=== PATIENT | male | born 1930 | race Caucasian/White ===

== ENCOUNTER 2016-07-13 21:04 | Emergency (ER) | payer MEDICARE ==
[~2016-07-13] VITALS: Ht 182.8 cm; Wt 95.3 kg
[2016-07-13 21:04] VITALS: BP 130/72
[~2016-07-13 21:04] MED LIST: ACETAMINOPHEN-H1 TA2 PO; AMPICILLIN500 MG PO; ASPIR-TRIN325 MG PO; BACTROBAN OINT0.9 GM T; CARAFATE1 GM PO; CIPRO250 MG PO; Carafate1 GM PO; DOXYCYCLINE HY100 M5 PO; ECOTRIN325 M1 PO; FAMOTIDINE20 M1 PO; FENOFIBRATE160 MG PO; FISH OIL 1,0001 EAC1 PO; FISH OIL500 M1 PO; FLOMAX0.4 MG PO; Ferrex 150150 MG PO; GLUCOPHAGE500 MG PO; HYDROCODONE/ACE1 T14 PO; IMDUR SA60 M1 PO; IRON325 M1 PO; Imdur SA60 MG PO; LEVAQUIN750 M1 PO; LISINOPRIL10 M1 PO; METFORMIN ER500 MG PO; METFORMIN500 MG PO; METOPROLOL25 MG PO; MIRALAX POWDER255 G1 PO; NORVASC10 MG PO; NORVASC5 MG PO; PEPCID20 MG PO; PLAVIX75 M1 PO; PRAVACHOL40 MG PO; PRAVASTATIN SOD40 MG PO; PROSCAR5 M1 PO; PROTONIX TR40 M1 PO; PROTONIX40 MG PO; RANEXA500 M1 PO; REMEDY WITH OLI1 PAS T; SENOKOT1 TAB PO; TOPROL XL25 MG PO; TRIGLIDE160 MG PO; TYLENOL325 M1 PO; VITAMIN D32000 UNIT PO; XANAX0.25 MG PO; XARELTO15 M1 PO; ZETIA10 MG PO
[2016-07-13 22:12] LABS: BILIRUBIN NEGATIVE (NEGATIVE); BLOOD 2+ (NEGATIVE); CLARITY SL CLOUDY (CLEAR); COLOR YELLOW (YELLOW); GLUCOSE NEGATIVE (NEGATIVE); KETONE NEGATIVE (NEGATIVE); LEUKO ESTERASE 2+ (NEGATIVE); NITRITE NEGATIVE (NEGATIVE); PH 5.5 (5.0-9.0); PROTEIN 2+ (NEGATIVE); SPECIFIC GRAVITY 1.025 (1.005-1.030)
[2016-07-13 22:36] LABS: RBC 31-40 rbc/hpf (0-2); WBC 41-50 wbc/hpf (0-5)
[2016-07-13 22:37] LABS: BACTERIA TRACE; URINE REFLEX COMMENT YES (NO)
[2016-07-13] MEDS ORDERED: CEFUROXIME AXE250 MG PO (22:43)
== END 2016-07-13 23:37 | disposition home or self-care (01) ==
LOC: ED 21:04
PROVIDERS: Physician Assistant
DX: T83.010A Breakdown (mechanical) of cystostomy catheter, initial encounter (principal); R33.9 Retention of urine, unspecified; N39.0 Urinary tract infection, site not specified; I25.10 Atherosclerotic heart disease of native coronary artery without angina pectoris; I12.9 Hypertensive chronic kidney disease with stage 1 through stage 4 chronic kidney disease, or unspecified chronic kidney disease; N18.3 Chronic kidney disease, stage 3 (moderate); I99.8 Other disorder of circulatory system; E11.9 Type 2 diabetes mellitus without complications; Z88.8 Allergy status to other drugs, medicaments and biological substances; Z79.899 Other long term (current) drug therapy

== ENCOUNTER 2016-08-29 11:45 | Inpatient (IN) | payer MEDICARE ==
[~2016-08-29] VITALS: Ht 182.8 cm; Wt 90.9 kg
[2016-08-29] VITALS (7 sets, daily range): BP systolic 96–137; BP diastolic 48–73
--- NOTE | ~2016-08-29 | CON ---
[place], [place] REPORT OF CONSULTATION NAME: PRESTON FREEMAN UNIT #: [id number] ROOM: 508 DOCTOR: JOSEPH ALLEN MD BIRTHDATE: [birth year] DOS: 09/02/2016 HISTORY OF PRESENT ILLNESS: The patient has presented with GI bleed, underwent endoscopic evaluation and was found to have gastritis, hiatal hernia. Colonoscopy with piecemeal polypectomy was performed. There was no active bleeding of concern; was noticed diverticulosis, small hemorrhoids, all have been recognized. His blood cultures were negative. His latest CBC, white blood cells of 6, H and H of 9 and 27. REVIEW OF SYSTEMS: No hematemesis, no hematochezia, no shortness of breath, no chest pain at the present time. PHYSICAL EXAMINATION: GENERAL: Relatively restraint; however, alert and oriented. HEENT: Head is normocephalic, nontraumatic. Mouth and buccal mucosa benign. NECK: Supple, no thyromegaly, no cervical lymphadenopathy. CHEST: Symmetric anatomy, equal expansion. HEART: Normal sinus rhythm, no gallop, no murmur. ABDOMEN: Soft. No hepato-organomegaly. Bowel sounds are present. EXTREMITIES: 2+ edema. NEUROLOGIC: Alert and oriented to time, place, and person. IMPRESSION: Diverticulosis, colonic polyp, gastritis, and hiatal hernia. PLAN AND DISCUSSION: PPI management, observation of H and H, clinical reassessment. Labs reviewed, records reviewed, data reviewed. JOSEPH ALLEN MD CM:CONSTR:REPORT OF CONSULTATION 1244 09/03/16 0516 interface
--- NOTE | ~2016-08-29 | CON ---
[place], [place] REPORT OF CONSULTATION NAME: PRESTON FREEMAN UNIT #: [id number] ROOM: 508 DOCTOR: JOSEPH ALLEN MD BIRTHDATE: [birth year] DOS: HISTORY OF PRESENT ILLNESS: An 85-year-old patient who was presented with chief complaint of lower GI bleed according to the family. The patient has to be admitted for definitive evaluation. A panel of blood work was done and was found to have anemia, H and H of 9 and 27, white blood cell was 4.9. Urine culture greater than 100,000, heavy gram-negative bacilli was being addressed. Resistance to many antibiotics has been noticed as per protocol. Lactic acid was 1.0. CBC differential, white blood cell was 4.9, H and H of 9 and 27. Continue with chest x-ray clear. Comprehensive metabolic panel: BUN and creatinine 18 and 1.6. Sodium 135. Electrolytes balanced. Liver function tests normal. Total iron binding was normal. PAST MEDICAL HISTORY: Coronary artery disease, renal insufficiency, shoulder pain, dementia, hypertension, neurogenic bladder, all has been noticed. PAST SURGICAL HISTORY: Cardiac pacemaker, bilateral knee prosthesis, coronary artery stents, and cholecystectomy. SOCIAL HISTORY: Nonsmoker, nonalcohol consumer. FAMILY HISTORY: Noncontributory. ALLERGIES: LORAZEPAM. MEDICATIONS: List has been reviewed. REVIEW OF SYSTEMS: HEENT: Denies double vision, blurred vision. RESPIRATORY: Denies shortness of breath. CARDIOVASCULAR: Denies chest pain. DIGESTIVE SYSTEM: Blood in the stool. PHYSICAL EXAMINATION: VITAL SIGNS: Stable. HEENT: Head: Normocephalic, nontraumatic. Mouth and buccal mucosa benign. NECK: Supple. No thyromegaly. CHEST: Symmetric anatomy, equal expansion. No wheeze, no rhonchi. HEART: Normal sinus rhythm, no gallop, no murmur. ABDOMEN: Soft. No hepato-organomegaly. Bowel sounds present. No pulsatile mass. EXTREMITIES: No cyanosis, no pedal edema. NEUROLOGIC: Alert, oriented to time, place, person. IMPRESSION: Lower gastrointestinal bleed, anemia, renal insufficiency, hypertension, coronary artery disease, diabetes mellitus. PLAN AND DISCUSSION: We are going to organize a colonoscopy evaluation . Workup in progress. [place], [place] REPORT OF CONSULTATION NAME: PRESTON FREEMAN UNIT #: [id number] ROOM: 508 DOCTOR: TIFFANY HERNANDEZ,JOSEPH BIRTHDATE: [birth year] Thank you very much indeed. JOSEPH ALLEN MD CM:CONSTR:REPORT OF CONSULTATION 1112 08/30/16 2304 interface
--- NOTE | ~2016-08-29 | O ---
[place], [place] OPERATIVE NOTE NAME: PRESTON FREEMAN UNIT #: [id number] ROOM: 508 DOCTOR: JOSEPH ALLEN MD BIRTHDATE: [birth year] DOS: INDICATIONS: An 85-year-old patient who has presented with chief complaint of lower GI bleed and has been admitted for definitive concerns about above consultations have been dictated. PROCEDURE: Today's procedure part of investigation is colonoscopy. PREMEDICATION: Versed and Diprivan. SCOPE: Olympus forward-viewing colonoscope 10L video. REPORT: After putting the patient in the left lateral position and after application of lubricant to the scope, the scope was introduced. Thereafter, under direct visualization, I advanced through the length of colon without difficulty. Severe diverticulosis coli was appreciated. Base of the cecum explored, appendiceal orifice identified, and ileocecal valve was defined and photographed. Scope was gradually withdrawn from ascending, transverse, descending colon. The patient was extubated after a hemorrhoid small in size in the rectum was identified. IMPRESSION: Diverticulosis, small hemorrhoid, perhaps this patient bled from the hemorrhoid. PLAN AND DISCUSSION: We are going to resume regular diet and supportive management. The patient is ready for discharge. Thank you very much indeed. JOSEPH ALLEN MD CM:OPRECORD:OPERATIVE NOTE 1151 1525 JOSEPH ALLEN MD 08/30/16 1526 interface
[~2016-08-29 11:45] MED LIST changes: +CEFUROXIME AXE250 MG PO
[2016-08-29] MEDS ORDERED: ASPIRIN81 M1 PO (12:37)
[2016-08-29] MEDS ORDERED: FENOFIBRATE150 MG PO (12:39)
[2016-08-29] MEDS ORDERED: PEPCID20 MG PO (12:40)
[2016-08-29] MEDS ORDERED: CARAFATE1 G1 PO (12:41)
[2016-08-29 13:25] LABS: BASO % 0.4 % (0.0-1.0); EOS # 0.1 10*3/uL (0.0-0.4); EOS % 1.2 % (1.0-4.0); HEMATOCRIT 27.9 % (42.0-52.0); HEMOGLOBIN 9.4 g/dl (14.0-18.0); LYMPH # 1.1 10*3/uL (1.3-4.4); LYMPH % 22.8 % (27.0-41.0); MEAN CELL VOLUME 94.3 fl (80.0-94.0); MEAN CORPUSCULAR HGB 31.8 pg (27.0-31.0); MEAN CORPUSCULAR HGB CONC 33.7 g/dl (33.0-37.0); MEAN PLATELET VOLUME 9.8 fl (9.6-12.3); MONO # 0.4 10*3/uL (0.1-1.0); MONO % 8.9 % (3.0-9.0); NEUT # 3.2 10*3/uL (2.3-7.9); NEUT % 66.1 % (47.0-73.0); PLATELET COUNT AUTOMATED 209 10*3/uL (130-400); RED BLOOD COUNT 2.96 10*6/uL (4.50-5.90); RED CELL DISTRI WIDTH 13.5 % (0-14.5); WHITE BLOOD COUNT 4.8 10*3/uL (4.8-10.8)
[2016-08-29 13:40] LABS: ALBUMIN 3.1 gm/dl (3.1-4.5); BILIRUBIN, TOTAL 0.5 mg/dl (0.2-1.0); POTASSIUM 4.1 mmol/L (3.5-5.1); TOTAL PROTEIN 6.1 gm/dL (6.4-8.2)
[2016-08-29 14:28] LABS: IRON 84 ug/dL (65-175); IRON SATURATION 32 %; UIBC 178 ug/dL (110-410)
[2016-08-29] MEDS ORDERED: HYDROCODONE BIT1 T11 PO (15:33)
[2016-08-29] MEDS ORDERED: PROSCAR5 M1 PO (15:33)
[2016-08-29] MEDS ORDERED: BACTRIM DS 8001 TAB PO (15:34)
[2016-08-29 18:30] LABS: CKMB 1.4 ng/ml (0.5-3.6); TROPONIN I 0.026 ng/ml (<0.045)
[2016-08-30] VITALS (9 sets, daily range): BP systolic 113–152; BP diastolic 63–92
[2016-08-30 00:43] LABS: CKMB 1.3 ng/ml (0.5-3.6); TROPONIN I 0.038 ng/ml (<0.045)
[2016-08-30 06:46] LABS: CKMB 1.4 ng/ml (0.5-3.6)
[2016-08-30 06:47] LABS: BASO % 0.8 % (0.0-1.0); EOS # 0.1 10*3/uL (0.0-0.4); EOS % 2.7 % (1.0-4.0); HEMATOCRIT 28.7 % (42.0-52.0); HEMOGLOBIN 9.4 g/dl (14.0-18.0); LYMPH # 1.5 10*3/uL (1.3-4.4); LYMPH % 28.9 % (27.0-41.0); MEAN CORPUSCULAR HGB 31.1 pg (27.0-31.0); MEAN CORPUSCULAR HGB CONC 32.8 g/dl (33.0-37.0); MEAN PLATELET VOLUME 9.6 fl (9.6-12.3); MONO # 0.5 10*3/uL (0.1-1.0); MONO % 9.7 % (3.0-9.0); NEUT % 57.1 % (47.0-73.0); PLATELET COUNT AUTOMATED 204 10*3/uL (130-400); RED BLOOD COUNT 3.02 10*6/uL (4.50-5.90); RED CELL DISTRI WIDTH 13.7 % (0-14.5); WHITE BLOOD COUNT 5.2 10*3/uL (4.8-10.8)
[2016-08-30 06:48] LABS: TROPONIN I 0.056 ng/ml (<0.045)
[2016-08-30 07:03] LABS: INTERNATIONAL NORM RATIO 1.1 (2.0-3.5); PROTHROMBIN TIME 12.2 SECONDS (9.0-12.4)
[2016-08-30 07:15] LABS: FREE T4 1.23 ng/dl (0.76-1.46); MAGNESIUM 1.8 mg/dL (1.5-2.1); PHOSPHOROUS 2.1 mg/dL (2.5-4.9); POTASSIUM 4.1 mmol/L (3.5-5.1)
[2016-08-30 07:21] LABS: THYROID STIM HORMONE (HS) 0.76 uIU/ml (0.358-4.75)
[2016-08-30 07:22] LABS: HEMOGLOBIN A1c 5.6 % (4.8-5.6)
[2016-08-30 08:15] LABS: VITAMIN D, 25-HYDROXY 26.4 ng/mL (30-100)
[2016-08-30 08:16] LABS: FOLIC ACID 5.29 ng/mL (>5.38)
[2016-08-31] VITALS: BP 115/84
[2016-08-31 06:19] LABS: HEMOGLOBIN 9.2 g/dl (14.0-18.0); MEAN CELL VOLUME 92.2 fl (80.0-94.0); MEAN CORPUSCULAR HGB 31.4 pg (27.0-31.0); MEAN CORPUSCULAR HGB CONC 34.1 g/dl (33.0-37.0); NUCLEATED RED BLOOD CELL 0.1 10*3/uL (0.0-0.0); NUCLEATED RED BLOOD CELL 1.3 % (0.0-0.0); PLATELET COUNT AUTOMATED 195 10*3/uL (130-400); RED BLOOD COUNT 2.93 10*6/uL (4.50-5.90); RED CELL DISTRI WIDTH 13.6 % (0-14.5); WHITE BLOOD COUNT 6.2 10*3/uL (4.8-10.8)
[2016-08-31 06:45] LABS: EOSINOPHIL # 0.2 10*3/uL (0-0.4); EOSINOPHILS 4 % (1-4); LYMPHOCYTE # 2.9 10*3/uL (1.3-4.4); MONOCYTE # 0.2 10*3/uL (0.1-1.0); NEUTROPHIL # 2.9 10*3/uL (2.3-7.9); NEUTROPHILS 46 % (47-73); PLATELET SUFFICIENCY NORMAL (NORMAL); TOTAL CELLS COUNTED 100 #CELLS
[2016-08-31 07:31] LABS: BUN 13 mg/dl (7-24); CARBON DIOXIDE 26 mmol/L (21-32); CHLORIDE 108 mmol/L (98-107); EST GLOM FILT AFRICAN AMERICAN > 60 ml/min; GLUCOSE 78 mg/dL (65-99); POTASSIUM 4.4 mmol/L (3.5-5.1); SODIUM 140 mmol/L (136-145)
[2016-08-31 08:00] VITALS: BP 150/74
[2016-08-31 12:00] VITALS: BP 142/70
[2016-08-31 16:00] VITALS: BP 134/63
[2016-08-31 20:00] VITALS: BP 145/56
[2016-09-01] VITALS: BP 134/57
[2016-09-01 07:55] VITALS: BP 150/70
[2016-09-01 12:00] VITALS: BP 145/70
[2016-09-01 16:00] VITALS: BP 99/76
[2016-09-01 20:00] VITALS: BP 127/80
[2016-09-02] VITALS: BP 138/82
[2016-09-02 08:00] VITALS: BP 154/72
[2016-09-02 12:00] VITALS: BP 115/63
[2016-09-02 16:00] VITALS: BP 100/80
[2016-09-02 20:00] VITALS: BP 152/84
[2016-09-03] VITALS: BP 138/75
[2016-09-03 08:00] VITALS: BP 156/86
[2016-09-03 12:00] VITALS: BP 135/59
[2016-09-03 16:00] VITALS: BP 133/60
[2016-09-03 20:00] VITALS: BP 140/68
[2016-09-04] VITALS: BP 145/57
[2016-09-04 08:00] VITALS: BP 129/69
[2016-09-04] MEDS ORDERED: NATURE'S BLEND F1 MG PO (11:58)
[2016-09-04] MEDS ORDERED: B12100 MC1 PO (11:58)
[2016-09-04 12:00] VITALS: BP 136/68
== END 2016-09-04 16:01 | disposition other institution (70) | DRG 871 ==
LOC: ED 11:45 → 5E 13:00 → EDHOLD 13:00 → 5E 13:37
PROVIDERS: Emergency Medicine; Internal Medicine; Student in an Organized Health Care Education/Training Program
PROC: 0DBE8ZZ Excision of Large Intestine, Via Natural or Artificial Opening Endoscopic (ICD-10-PCS; principal; 2016-08-30)
PROC: 0DJ08ZZ Inspection of Upper Intestinal Tract, Via Natural or Artificial Opening Endoscopic (ICD-10-PCS; principal; 2016-08-30)
DX: A41.9 Sepsis, unspecified organism (principal); N17.0 Acute kidney failure with tubular necrosis; E44.0 Moderate protein-calorie malnutrition; I13.0 Hypertensive heart and chronic kidney disease with heart failure and stage 1 through stage 4 chronic kidney disease, or unspecified chronic kidney disease; K92.2 Gastrointestinal hemorrhage, unspecified; E83.39 Other disorders of phosphorus metabolism; N39.0 Urinary tract infection, site not specified; K64.9 Unspecified hemorrhoids; R65.20 Severe sepsis without septic shock; E86.0 Dehydration; Z96.653 Presence of artificial knee joint, bilateral; I25.10 Atherosclerotic heart disease of native coronary artery without angina pectoris; R29.6 Repeated falls; N18.3 Chronic kidney disease, stage 3 (moderate); K63.5 Polyp of colon; D64.9 Anemia, unspecified; E11.22 Type 2 diabetes mellitus with diabetic chronic kidney disease; K29.70 Gastritis, unspecified, without bleeding; K44.9 Diaphragmatic hernia without obstruction or gangrene; K57.30 Diverticulosis of large intestine without perforation or abscess without bleeding; Z86.73 Personal history of transient ischemic attack (TIA), and cerebral infarction without residual deficits; I25.2 Old myocardial infarction; Z90.49 Acquired absence of other specified parts of digestive tract; Z95.5 Presence of coronary angioplasty implant and graft; Z95.0 Presence of cardiac pacemaker; Z82.5 Family history of asthma and other chronic lower respiratory diseases; Z82.49 Family history of ischemic heart disease and other diseases of the circulatory system; Z79.1 Long term (current) use of non-steroidal anti-inflammatories (NSAID); Z79.82 Long term (current) use of aspirin; Z79.899 Other long term (current) drug therapy; Z68.28 Body mass index [BMI] 28.0-28.9, adult

== ENCOUNTER 2016-10-14 15:16 | Inpatient (IN) | payer MEDICARE ==
[~2016-10-14] VITALS: Ht 182.8 cm; Wt 82.1 kg
[~2016-10-14 15:16] MED LIST changes: +ASPIRIN81 M1 PO; +B12100 MC1 PO; +BACTRIM DS 8001 TAB PO; +CARAFATE1 G1 PO; +FENOFIBRATE150 MG PO; +HYDROCODONE BIT1 T11 PO; +NATURE'S BLEND F1 MG PO
[2016-10-14 15:18] VITALS: BP 146/78
[2016-10-14 16:17] LABS: BASO # 0.1 10*3/uL (0.0-0.1); BASO % 0.9 % (0.0-1.0); EOS # 0.2 10*3/uL (0.0-0.4); EOS % 2.8 % (1.0-4.0); HEMATOCRIT 32.9 % (42.0-52.0); HEMOGLOBIN 10.7 g/dl (14.0-18.0); LYMPH # 1.6 10*3/uL (1.3-4.4); LYMPH % 28.5 % (27.0-41.0); MEAN CELL VOLUME 97.1 fl (80.0-94.0); MEAN CORPUSCULAR HGB 31.6 pg (27.0-31.0); MEAN CORPUSCULAR HGB CONC 32.5 g/dl (33.0-37.0); MEAN PLATELET VOLUME 9.9 fl (9.6-12.3); MONO # 0.5 10*3/uL (0.1-1.0); MONO % 9.6 % (3.0-9.0); NEUT # 3.3 10*3/uL (2.3-7.9); PLATELET COUNT AUTOMATED 242 10*3/uL (130-400); RED BLOOD COUNT 3.39 10*6/uL (4.50-5.90); WHITE BLOOD COUNT 5.7 10*3/uL (4.8-10.8)
[2016-10-14 16:33] LABS: BUN 21 mg/dl (7-24); CARBON DIOXIDE 25 mmol/L (21-32); CHLORIDE 105 mmol/L (98-107); EST GLOM FILT AFRICAN AMERICAN > 60 ml/min; GLUCOSE 103 mg/dL (65-99); POTASSIUM 4.7 mmol/L (3.5-5.1); SODIUM 139 mmol/L (136-145)
[2016-10-14 16:34] LABS: BILIRUBIN 1+ (NEGATIVE); BLOOD TRACE-LYSED (NEGATIVE); CLARITY SL CLOUDY (CLEAR); COLOR YELLOW (YELLOW); GLUCOSE NEGATIVE (NEGATIVE); KETONE NEGATIVE (NEGATIVE); LEUKO ESTERASE 3+ (NEGATIVE); NITRITE NEGATIVE (NEGATIVE); PROTEIN TRACE (NEGATIVE)
[2016-10-14 16:36] LABS: TROPONIN I 0.019 ng/ml (<0.045)
[2016-10-14 16:48] LABS: BACTERIA 2+; URINE REFLEX COMMENT YES (NO)
[2016-10-14 16:49] LABS: EPITHELIAL CELLS 0-2; WBC 51-100 wbc/hpf (0-5)
[2016-10-14 17:07] VITALS: BP 144/80
[2016-10-14] MEDS ORDERED: CEFUROXIME AXE250 MG PO (17:25)
[2016-10-14 20:00] VITALS: BP 110/52
[2016-10-14] MEDS ORDERED: OMEPRAZOLE20 M2 PO (20:43)
[2016-10-14] MEDS ORDERED: ZOFRAN4 MG PO (20:45)
[2016-10-14] MEDS ORDERED: DOCUSATE SODIU100 M2 PO (20:46)
[2016-10-14] MEDS ORDERED: NORCO 5-325 TA1 EACH PO (20:46)
[2016-10-15] VITALS: BP 108/50
[2016-10-15 06:58] LABS: BASO % 0.6 % (0.0-1.0); EOS # 0.3 10*3/uL (0.0-0.4); EOS % 5.6 % (1.0-4.0); HEMATOCRIT 29.4 % (42.0-52.0); HEMOGLOBIN 9.5 g/dl (14.0-18.0); LYMPH # 1.3 10*3/uL (1.3-4.4); LYMPH % 28.1 % (27.0-41.0); MEAN CORPUSCULAR HGB CONC 32.3 g/dl (33.0-37.0); MEAN PLATELET VOLUME 10.5 fl (9.6-12.3); MONO # 0.5 10*3/uL (0.1-1.0); MONO % 10.9 % (3.0-9.0); NEUT # 2.5 10*3/uL (2.3-7.9); NEUT % 54.4 % (47.0-73.0); PLATELET COUNT AUTOMATED 212 10*3/uL (130-400); RED BLOOD COUNT 2.97 10*6/uL (4.50-5.90); RED CELL DISTRI WIDTH 14.1 % (0-14.5); WHITE BLOOD COUNT 4.7 10*3/uL (4.8-10.8)
[2016-10-15 07:18] LABS: HEMOGLOBIN A1c 5.3 % (4.8-5.6)
[2016-10-15 07:27] LABS: ALBUMIN 2.7 gm/dl (3.1-4.5); ALKALINE PHOSPHATASE 42 U/L (45-117); BILIRUBIN, TOTAL 0.4 mg/dl (0.2-1.0); BUN 19 mg/dl (7-24); CARBON DIOXIDE 28 mmol/L (21-32); CHLORIDE 108 mmol/L (98-107); CHOLESTEROL 98 mg/dL (<200); EST GLOM FILT AFRICAN AMERICAN > 60 ml/min; GLUCOSE 84 mg/dL (65-99); HDL CHOLESTEROL 45 mg/dl (40-60); LDL CHOLESTEROL 33 mg/dL (9-159); MAGNESIUM 1.8 mg/dL (1.5-2.1); PHOSPHOROUS 2.8 mg/dL (2.5-4.9); POTASSIUM 4.3 mmol/L (3.5-5.1); SGOT/AST 14 IU/L (3-35); SGPT/ALT 11 U/L (12-78); SODIUM 143 mmol/L (136-145); TOTAL PROTEIN 5.6 gm/dL (6.4-8.2); TRIGLYCERIDES 99 mg/dl (<150); VLDL CHOLESTEROL 20 mg/dL (6-40)
[2016-10-15 07:48] LABS: INTERNATIONAL NORM RATIO 1.1 (2.0-3.5)
[2016-10-15 08:00] VITALS: BP 152/70
[2016-10-15 08:15] LABS: VITAMIN D, 25-HYDROXY 33.5 ng/mL (30-100)
[2016-10-15 08:16] LABS: FOLIC ACID 21.95 ng/mL (>5.38)
[2016-10-15 12:00] VITALS: BP 147/60
[2016-10-15 16:00] VITALS: BP 146/68
[2016-10-15 20:00] VITALS: BP 129/85
[2016-10-16] VITALS: BP 132/79
[2016-10-16 08:00] VITALS: BP 158/62
[2016-10-16 09:58] LABS: BASO # 0.1 10*3/uL (0.0-0.1); BASO % 0.9 % (0.0-1.0); EOS # 0.3 10*3/uL (0.0-0.4); EOS % 4.7 % (1.0-4.0); HEMATOCRIT 30.4 % (42.0-52.0); HEMOGLOBIN 9.9 g/dl (14.0-18.0); LYMPH # 1.2 10*3/uL (1.3-4.4); LYMPH % 21.7 % (27.0-41.0); MEAN CELL VOLUME 97.7 fl (80.0-94.0); MEAN CORPUSCULAR HGB 31.8 pg (27.0-31.0); MEAN CORPUSCULAR HGB CONC 32.6 g/dl (33.0-37.0); MEAN PLATELET VOLUME 10.2 fl (9.6-12.3); MONO # 0.6 10*3/uL (0.1-1.0); MONO % 10.4 % (3.0-9.0); NEUT # 3.5 10*3/uL (2.3-7.9); NEUT % 61.9 % (47.0-73.0); PLATELET COUNT AUTOMATED 214 10*3/uL (130-400); RED BLOOD COUNT 3.11 10*6/uL (4.50-5.90); RED CELL DISTRI WIDTH 14.1 % (0-14.5); WHITE BLOOD COUNT 5.6 10*3/uL (4.8-10.8)
[2016-10-16 10:35] LABS: ALBUMIN 2.9 gm/dl (3.1-4.5); ALKALINE PHOSPHATASE 46 U/L (45-117); BILIRUBIN, TOTAL 0.5 mg/dl (0.2-1.0); BUN 15 mg/dl (7-24); CARBON DIOXIDE 28 mmol/L (21-32); CHLORIDE 107 mmol/L (98-107); EST GLOM FILT AFRICAN AMERICAN > 60 ml/min; GLUCOSE 98 mg/dL (65-99); POTASSIUM 4.2 mmol/L (3.5-5.1); SGOT/AST 17 IU/L (3-35); SGPT/ALT 12 U/L (12-78); SODIUM 143 mmol/L (136-145)
[2016-10-16 10:41] LABS: TOTAL PROTEIN 6.1 gm/dL (6.4-8.2)
[2016-10-16] MEDS ORDERED: ZOSYN 50 ML50 ML IV (12:22)
[2016-10-16 13:00] VITALS: BP 160/62
[2016-10-16 16:00] VITALS: BP 158/60
== END 2016-10-16 17:12 | disposition other institution (70) | DRG 698 ==
LOC: ED 15:16 → 4E 17:59 → EDHOLD 17:59 → 4E 18:33
PROVIDERS: Emergency Medicine; Internal Medicine; Internal Medicine Nephrology
PROC: 02HV33Z Insertion of Infusion Device into Superior Vena Cava, Percutaneous Approach (ICD-10-PCS; principal; 2016-10-16)
DX: T83.518A Infection and inflammatory reaction due to other urinary catheter, initial encounter (principal); G93.41 Metabolic encephalopathy; I50.32 Chronic diastolic (congestive) heart failure; F03.90 Unspecified dementia, unspecified severity, without behavioral disturbance, psychotic disturbance, mood disturbance, and anxiety; I13.0 Hypertensive heart and chronic kidney disease with heart failure and stage 1 through stage 4 chronic kidney disease, or unspecified chronic kidney disease; E11.22 Type 2 diabetes mellitus with diabetic chronic kidney disease; N39.0 Urinary tract infection, site not specified; R31.9 Hematuria, unspecified; Z66 Do not resuscitate; Z51.5 Encounter for palliative care; D53.9 Nutritional anemia, unspecified; M54.2 Cervicalgia; Z96.653 Presence of artificial knee joint, bilateral; N31.9 Neuromuscular dysfunction of bladder, unspecified; N18.3 Chronic kidney disease, stage 3 (moderate); B96.5 Pseudomonas (aeruginosa) (mallei) (pseudomallei) as the cause of diseases classified elsewhere; Z86.73 Personal history of transient ischemic attack (TIA), and cerebral infarction without residual deficits; Z90.49 Acquired absence of other specified parts of digestive tract; Z95.5 Presence of coronary angioplasty implant and graft; Z82.49 Family history of ischemic heart disease and other diseases of the circulatory system; Z79.1 Long term (current) use of non-steroidal anti-inflammatories (NSAID); Z79.84 Long term (current) use of oral hypoglycemic drugs; Z79.899 Other long term (current) drug therapy; Z79.82 Long term (current) use of aspirin; Z88.8 Allergy status to other drugs, medicaments and biological substances; I25.10 Atherosclerotic heart disease of native coronary artery without angina pectoris

== ENCOUNTER → 2016-12-22 | Outpatient (CLI) | payer MEDICARE, OTHER ==
[~2016-12-22] MED LIST changes: +DOCUSATE SODIU100 M2 PO; +NORCO 5-325 TA1 EACH PO; +OMEPRAZOLE20 M2 PO; +ZOFRAN4 MG PO; +ZOSYN 50 ML50 ML IV
== END | disposition home or self-care (01) ==
LOC: CT 13:41
DX: N43.2 Other hydrocele (principal)

== ENCOUNTER 2017-01-31 10:54 | Inpatient (IN) | payer MEDICARE, OTHER ==
[2017-01-31] VITALS (11 sets, daily range): BP systolic 89–130; BP diastolic 40–69
[~2017-01-31] VITALS: Ht 182.9 cm; Wt 82.6 kg
[~2017-01-31 10:54] MED LIST changes: +LOPRESSOR25 MG PO; -TOPROL XL25 MG PO
--- NOTE | 2017-01-31 10:54 | NUR ---
DR. SANDS REQUESTING SAME SUPRPUBIC CATHETER THAT THE [facility], PATIENT HAS AN 18 [address] 30 CC BALLOON, WE HAVE NONE OF THOSE CATHETERS LOCATED IN THE ER OR THE STOCK AREAS OF THE ER, BETY SHINE SOLID PROPELLANT PROCESSOR MADE AWARE AND SHE IS ATTEMPTING TO LOCATE ONE. PRITESH HUNT
--- NOTE | 2017-01-31 10:58 | NUR ---
DR. SANDS DOES NOT WANT THE URINE TAKING FROM THE OLD YI CATHETER BUT IS REQUESTING IT TO BE DRAWN FROM THE NEW YI CATHETER HE IS PLANING ON INSERTING. PRITESH HUNT
--- NOTE | 2017-01-31 11:20 | NUR ---
BETY SHINE MADE ME AWARE THAT SHE IS UNABLE TO LOCATE THE CATHETER AND SHE WILL NOTIFY DR. SANDS. PRITESH HUNT
[2017-01-31 11:21] LABS: BASO % 0.6 % (0.0-1.0); EOS # 0.1 10*3/uL (0.0-0.4); EOS % 1.7 % (1.0-4.0); HEMATOCRIT 33.2 % (42.0-52.0); LYMPH # 1.6 10*3/uL (1.3-4.4); LYMPH % 23.2 % (27.0-41.0); MEAN CELL VOLUME 95.4 fl (80.0-94.0); MEAN CORPUSCULAR HGB 31.6 pg (27.0-31.0); MEAN CORPUSCULAR HGB CONC 33.1 g/dl (33.0-37.0); MEAN PLATELET VOLUME 9.1 fl (9.6-12.3); MONO # 0.6 10*3/uL (0.1-1.0); MONO % 8.4 % (3.0-9.0); NEUT # 4.6 10*3/uL (2.3-7.9); NEUT % 65.7 % (47.0-73.0); PLATELET COUNT AUTOMATED 249 10*3/uL (130-400); RED BLOOD COUNT 3.48 10*6/uL (4.50-5.90); RED CELL DISTRI WIDTH 15.1 % (0-14.5); WHITE BLOOD COUNT 6.9 10*3/uL (4.8-10.8)
--- NOTE | 2017-01-31 11:25 | NUR ---
FAMILY PRESENT WITH THE PATIENT NOW AT THIS TIME, FAMILY STATES THAT THE LAST TIME THEY SEEN THE PATIENT THIS MORNING WAS AT 0800 THEN THEY NOTICED HIM PROGRESSIVELY GETTING WEAKER, IMMEDIATELY MADE DR SANDS AWARE OF THIS INFORMATION AND THE CAHNGE OF TIME, FAMILY STATES THAT THE PATIENT'S BLOOD PRESSURE ALWAYS RUNS ON THE LOWER END IN THE 90S SYSTOLIC AND 50S DIASTOLIC. PRITESH HUNT
[2017-01-31 11:36] LABS: ACT PARTIAL THROMBO TIME 26.1 SECONDS (20.8-31.5); INTERNATIONAL NORM RATIO 1.1 (2.0-3.5)
[2017-01-31 11:38] LABS: ALBUMIN 3.4 gm/dl (3.1-4.5); CREATININE 1.87 mg/dL (0.70-1.30); POTASSIUM 4.4 mmol/L (3.5-5.1); TOTAL PROTEIN 6.6 gm/dL (6.4-8.2)
[2017-01-31 11:39] LABS: TROPONIN I 0.016 ng/ml (<0.045)
--- NOTE | 2017-01-31 11:56 | NUR ---
PATIENT IS MORE ALERT AND IS NOW ANSWERING QUESTIONS APPROPRIATELY, PATIENT KNOWS THE DAY, THE MONTH, AND THE PRESIDENT, STILL UNSURE OF THE TIME, PATIENT SITTING UP AND TALKING WITH FAMILY PATIENT IS INTERACTING APPROPRIATELY. PRITESH HUNT
--- NOTE | 2017-01-31 12:39 | NUR ---
PATIENT IS ALERT AND SITTING UP IN BED TALKING WITH HIS FAMILY AT THIS TIME, SKIN IS PALE, WARM, AND DRY, RESPIRATIONS ARE EASY AND NONLABORED, CALL LIGHT IN REACH OF THE PATIENT AND THE FAMILY, CONTINUING TO MONITOR THE PATIENT. PRITESH HUNT
--- NOTE | 2017-01-31 13:45 | NUR ---
SUPRPUBIC CATHETER SIZE [address] SANDS. GILBERT,RN
[2017-01-31 14:15] LABS: BILIRUBIN NEGATIVE (NEGATIVE); BLOOD 3+ (NEGATIVE); CLARITY CLOUDY (CLEAR); COLOR YELLOW (YELLOW); GLUCOSE NEGATIVE (NEGATIVE); KETONE NEGATIVE (NEGATIVE)
[2017-01-31 14:16] LABS: LEUKO ESTERASE 3+ (NEGATIVE); NITRITE NEGATIVE (NEGATIVE); UROBILINOGEN 0.2 E.U./dl (0.2-1.0)
[2017-01-31 14:21] LABS: WBC TNTC wbc/hpf (0-5)
--- NOTE | 2017-01-31 14:43 | NUR ---
PATIENT TAKEN TO ROOM 522 PLACED ON THE MONITOR AND CARE TRANSFERRED TO CINDY GONG RN AND GENNA. PRITESH HUNT
--- NOTE | 2017-01-31 14:45 | NUR ---
A 86, admitted to , under the services of ODETTE Garcia DO with a diagnosis of TIA. Chief complaint is INCREASED WEAKNESS AT HOME. Patient arrived via stretcher from ER. Monitor applied. Initial assessment completed. Vital signs taken and recorded. ODETTE GARCIA DO notified of admission to the unit. Orders received. See assessment for past medical history, medications and allergies. Patient and/or family oriented to unit. [facility] visitation policy reviewed. Clothing/patient valuable form completed. CINDY GONG
[2017-01-31] MEDS ORDERED: PROTONIX40 MG PO (14:59)
[2017-01-31] MEDS ORDERED: IMDUR SA60 M1 PO (14:59)
[2017-01-31] MEDS ORDERED: NITROSTAT0.4 MG SL (15:00)
[2017-01-31] MEDS ORDERED: MEGACE 40400 MG/10 PO (15:00)
[2017-01-31] MEDS ORDERED: SEPTDS PO (15:00)
--- NOTE | 2017-01-31 15:03 | NUR ---
PT'S MED REC UPDATED BY LIST PROVIDED BY FAMILY.
--- NOTE | 2017-01-31 15:16 | NUR ---
MEDICATIONS VERIFIED WITH LIST BROUGHT IN BY FAMILY.
--- NOTE | 2017-01-31 15:50 | NUR ---
PT ALERTV AND ORIENTED X 3, GOOD MEMORY, READ EQUALLY, GOOD CASTING INSPECTOR, PEDAL PUSHES/PULLS EQUAL AND STRONG, IV FLUIDS STARTED, NORCO PER PTS REQUEST FOR HEADACHE AND SHOULDER PAIN 11/19
[2017-02-01] VITALS: BP 116/73
--- NOTE | 2017-02-01 00:40 | NUR ---
24 HR chart check completed.
--- NOTE | 2017-02-01 04:40 | NUR ---
Called and notified Dr. Cordon regarding patient's confusion and combativeness. New orders received.
--- NOTE | 2017-02-01 04:50 | NUR ---
Medicated with Haldol and Ativan IV x1 dose for confusion and combativeness. Will monitor effectiveness. Call light within reach.
--- NOTE | 2017-02-01 05:15 | NUR ---
Patient resting quietly in bed with eyes closed. Haldol and Ativan were effective. Will continue to monitor. Call light within reach.
[2017-02-01 06:27] LABS: BASO % 0.6 % (0.0-1.0); EOS # 0.2 10*3/uL (0.0-0.4); EOS % 2.3 % (1.0-4.0); HEMATOCRIT 30.1 % (42.0-52.0); HEMOGLOBIN 9.9 g/dl (14.0-18.0); LYMPH # 1.4 10*3/uL (1.3-4.4); LYMPH % 21.1 % (27.0-41.0); MEAN CELL VOLUME 95.9 fl (80.0-94.0); MEAN CORPUSCULAR HGB 31.5 pg (27.0-31.0); MEAN CORPUSCULAR HGB CONC 32.9 g/dl (33.0-37.0); MEAN PLATELET VOLUME 9.4 fl (9.6-12.3); MONO # 0.7 10*3/uL (0.1-1.0); MONO % 10.3 % (3.0-9.0); NEUT # 4.4 10*3/uL (2.3-7.9); NEUT % 65.3 % (47.0-73.0); PLATELET COUNT AUTOMATED 199 10*3/uL (130-400); RED BLOOD COUNT 3.14 10*6/uL (4.50-5.90); RED CELL DISTRI WIDTH 15.2 % (0-14.5); WHITE BLOOD COUNT 6.8 10*3/uL (4.8-10.8)
[2017-02-01 06:56] LABS: ACT PARTIAL THROMBO TIME 27.6 SECONDS (20.8-31.5); INTERNATIONAL NORM RATIO 1.1 (2.0-3.5)
[2017-02-01 06:58] LABS: CREATININE 1.65 mg/dL (0.70-1.30); MAGNESIUM 2.1 mg/dL (1.5-2.1); PHOSPHOROUS 2.6 mg/dL (2.5-4.9); POTASSIUM 4.5 mmol/L (3.5-5.1); TOTAL PROTEIN 6.3 gm/dL (6.4-8.2)
[2017-02-01 08:00] VITALS: BP 100/50
--- NOTE | 2017-02-01 10:34 | NUR ---
Patient was in bed, eating breakfast, with daughter present upon arrival for Occupational Therapy evaluation. OTR will recheck at a later time. Thank you for this referral Scarlett Velasquez OTR/Florentin
--- NOTE | 2017-02-01 11:49 | NUR ---
PHYSICAL THERAPY PAtient evaluated on 5, full evaluation to follow. Continue with PT as per plan of care with fall, max (A) x 2 and acute debility precautions. May benfit from SNF but doubt patient is willing. If home, will require 24/7 family assist and complete home health services. PAtient is high complexity via chart review, tests and evaluation: 24095. Thank you for this referral. Mayi Barahona,PT
[2017-02-01 12:00] VITALS: BP 129/69
--- NOTE | 2017-02-01 13:50 | NUR ---
TALKED TO PT'S DAUGHTER AND NOTIFIED HER OF THE PT'S CONDITION. THE DAUGHTER WAS TOLD THAT THE PATIENT WAS COMBATIVE LAST NIGHT AND WAS GIVEN ATIVAN AND HALDOL. THE DAUGHTER STATED THAT THE PT IS ALLERGIC TO ATIVAN AND BECOMES COMBATIVE WHEN GIVEN THE MEDICATION. THE DAUGHTER DENIED ANY REAL ALLERGIC REACTIONS SUCH ANAPHYLATIC REACTIONS LIKE (PULMONARY ISSUES, SOB, RASH, ITCHING.) THE PATIENT DID REQUEST THAT WE NO LONGER GIVE THE MEDICATION AND WAS WONDERING HOW THE MEDICATION WAS GIVEN. THE DAUGHTER WAS TOLD THAT THE PT WAS GIVEN ATIVAN FOR THE COMBATIVENESS AND THAT THE MEDICATION WAS EFFECTIVE AND THE PATIENT SLEPT WELL AFTER ADMINISTRATION OF ATIVAN. THE DAUGHTER STATED THAT IT WAS UNLIKELY AND THAT THE REASON THE PATIENT WAS COMBATIVE WAS BECASUSE THE NIGHT TIME NURSE GAVE HIM ATIVAN. SHIFT SUPERVIDOR WAS NOTIFIED OF THE CONVERSATION. NO OTHER CONCERNS.
--- NOTE | 2017-02-01 14:03 | NUR ---
DR. MEDINA WAS NOTIFIED OF THE DAUGHTERS REQUEST TO NOT GIVE ATIVAN. T.O GIVEN TO GIVE A MESSAGE TO THE 5TH FLOOR TO NOT GIVE ATIVAN.
--- NOTE | 2017-02-01 15:51 | NUR ---
Occupational Therapy evaluation completed this date on 5 with full eval to follow. Precautions include fall risk, acute debility, vaughan,severe ROM limits, moderate complexity level 80745. Recommend OT per POC and HH OT,PT, SN upon d/c to allow patient to remain in his home. Thank you for this referral. Scarlett Velasquez OTR/l
[2017-02-01 16:00] VITALS: BP 155/72
[2017-02-01 20:06] VITALS: BP 155/72
[2017-02-02] VITALS: BP 132/63
[2017-02-02 07:10] LABS: BASO % 0.6 % (0.0-1.0); EOS # 0.2 10*3/uL (0.0-0.4); EOS % 3.1 % (1.0-4.0); HEMATOCRIT 26.7 % (42.0-52.0); HEMOGLOBIN 8.8 g/dl (14.0-18.0); LYMPH # 1.5 10*3/uL (1.3-4.4); MEAN CELL VOLUME 95.4 fl (80.0-94.0); MEAN CORPUSCULAR HGB 31.4 pg (27.0-31.0); MONO # 0.6 10*3/uL (0.1-1.0); MONO % 11.9 % (3.0-9.0); NEUT # 2.9 10*3/uL (2.3-7.9); PLATELET COUNT AUTOMATED 183 10*3/uL (130-400); RED CELL DISTRI WIDTH 15.1 % (0-14.5); WHITE BLOOD COUNT 5.2 10*3/uL (4.8-10.8)
[2017-02-02 07:44] LABS: BUN 24 mg/dl (7-24); CHLORIDE 109 mmol/L (98-107); CREATININE 1.31 mg/dL (0.70-1.30)
[2017-02-02 07:46] LABS: POTASSIUM 4.3 mmol/L (3.5-5.1); SODIUM 138 mmol/L (136-145)
[2017-02-02 08:00] VITALS: BP 124/75
--- NOTE | 2017-02-02 09:00 | NUR ---
Gas Manager in to talk to patient. Patient states lives at home with alone. There are no steps in the home. Physician: kieran rocha [facility]: [facility] Patient's level of ADLs: MINIMAL ASSIST Patient has working utilities: all working DME: walker Follow-up physician's appointment after d/c: will be made by hospitalist nurse director upon discharge Does patient want to access PORTAL?: no Discharge plan discussed with patient, patient lives at home, states he gets around fine, patient states he will be going back home and wants his home health to continue, mechanical planner will notify [facility] when patient is medically stable for discharge. ABDI MCRAE
--- NOTE | 2017-02-02 09:18 | NUR ---
Awake an alert no c/o . Iv tubing changed .
--- NOTE | 2017-02-02 09:35 | NUR ---
PO meds given w/o difficulty. Pleasent no c/o.
--- NOTE | 2017-02-02 10:28 | NUR ---
PHYSICAL THERAPY Patient presented to therapy in supine with report of feeling pretty good and wanting to do therapy. Patient performed supine to sitting at EOB transfer with SBA X 1. Patient performed sitting tolerance for 5 minutes with SBA X 1. Patient performed sit to stand transfer with Max. A X 1 and stand pivot to chair with Max. A X 1. Patient performed seated ther ex x 20 reps in all planes of mvmt. . Patient tolerate dther ex well and did much better than expected today. Patient left in seated position with call light within reach and LEs raised. Two Nurses aids were also in the room and said they were going to attach body alarm to the patient while sitting. Patient was 1:1 with this RIG BUILDER HELPER for 25 minutes. Terrence Jaramillo RIG BUILDER HELPER
--- NOTE | 2017-02-02 10:45 | NUR ---
Patient is currently active with [facility] and will need a resume home health order prior to discharge.
[2017-02-02 12:00] VITALS: BP 137/78
[2017-02-02] MEDS ORDERED: LIPITOR80 MG PO (13:55)
[2017-02-02] MEDS ORDERED: FISH OIL 500MG PO (13:57)
--- NOTE | 2017-02-02 14:12 | NUR ---
1245; independent freight agent CALLED OUT Stating asystole. On assessment. pt had disconnected monitor stating he was going home . asked to please [facility] for offical discharge order 1315 Body alarm alert. IV found on bed. pt. stated he removed it as he was going home. Dr. Elizondo was called and confirmed pt. discharge. Pt. asked to please wait until discharge order was recieved.
--- NOTE | 2017-02-02 14:19 | NUR ---
PATIENT SEEN 1:1 OT 15 MINUTES THIS DATE. PATIENT IDENTIFIED BY NAME AND DATE OF . PATIENT SEATED IN RECLINER AND TOLERATING SITTING UP WELL. PATIENT ALERT AND ORIENTED TO PLACE AND PERSON ONLY THIS DATE. PATIENT COMPLETED BUE SHOULDER AAROM WITH LIMITED ROM NOTED SHOULDER FLEX/EXT X 15 REPS TO TOLERANCE SECONDARY REPORTS PAIN, AROM SHOULDER SHRUGS X 15 REPS, AROM ELBOW/WRIST FLEX/EXT X 15 REPS, AND COMPLETED HAND AROM ALL PLANES X 15 REPS FOR OVERALL INCREASE FUNTIONAL ACTIVITY PERFORMANCE. CALL LIGHT WITHIN REACH UPON EXITING ROOM. DARIO CABELLO/Florentin
--- NOTE | 2017-02-02 14:53 | NUR ---
Discharge instruction given to Family. Voiced understanding. See DIS.
--- NOTE | 2017-02-02 15:03 | NUR ---
Patient being discharged to home to resume home health services via [facility]. Faxed order and clincals.
--- NOTE | 2017-02-02 16:01 | NUR ---
PHYSICAL THERAPY CO-SIGN I approve of the Phyical Therapy notes written above. DANIELLE FONTAINE PT
--- NOTE | 2017-02-03 07:39 | NUR ---
OCCUPATIONAL THERAPY CO-SIGN I approve of the Occupational Therapy notes written above. FADI DOSS OTR/Florentin
--- NOTE | 2017-02-03 07:39 | NUR ---
OCCUPATIONAL THERAPY CO-SIGN I approve of the Occupational Therapy notes written above. FADI DOSS OTR/Florentin
== END 2017-02-02 15:05 | disposition home health service (06) | DRG 314 ==
LOC: ED 10:54 → 5E 12:47 → EDHOLD 12:47 → 5E 13:17
PROVIDERS: Emergency Medicine; Family Medicine; Internal Medicine Nephrology; ADMIT Internal Medicine
PROC: 0T2BX0Z Change Drainage Device in Bladder, External Approach (ICD-10-PCS; principal; 2017-01-31)
DX: I95.89 Other hypotension (principal); N17.0 Acute kidney failure with tubular necrosis; G93.41 Metabolic encephalopathy; E87.2 Acidosis; I50.32 Chronic diastolic (congestive) heart failure; I13.0 Hypertensive heart and chronic kidney disease with heart failure and stage 1 through stage 4 chronic kidney disease, or unspecified chronic kidney disease; E87.1 Hypo-osmolality and hyponatremia; G45.9 Transient cerebral ischemic attack, unspecified; E11.22 Type 2 diabetes mellitus with diabetic chronic kidney disease; E86.0 Dehydration; R62.7 Adult failure to thrive; I25.10 Atherosclerotic heart disease of native coronary artery without angina pectoris; N18.3 Chronic kidney disease, stage 3 (moderate); E11.65 Type 2 diabetes mellitus with hyperglycemia; D53.9 Nutritional anemia, unspecified; F03.90 Unspecified dementia, unspecified severity, without behavioral disturbance, psychotic disturbance, mood disturbance, and anxiety; N31.9 Neuromuscular dysfunction of bladder, unspecified; K21.9 Gastro-esophageal reflux disease without esophagitis; K57.30 Diverticulosis of large intestine without perforation or abscess without bleeding; Z96.653 Presence of artificial knee joint, bilateral; Z87.440 Personal history of urinary (tract) infections; Z88.8 Allergy status to other drugs, medicaments and biological substances; Z86.73 Personal history of transient ischemic attack (TIA), and cerebral infarction without residual deficits; I25.2 Old myocardial infarction; Z95.0 Presence of cardiac pacemaker; Z90.49 Acquired absence of other specified parts of digestive tract; Z98.61 Coronary angioplasty status; Z98.1 Arthrodesis status; Z82.49 Family history of ischemic heart disease and other diseases of the circulatory system; Z82.3 Family history of stroke; Z82.5 Family history of asthma and other chronic lower respiratory diseases; Z79.82 Long term (current) use of aspirin; Z79.899 Other long term (current) drug therapy; Z79.01 Long term (current) use of anticoagulants

== ENCOUNTER 2017-03-10 08:41 | Inpatient (IN) | payer MEDICARE, OTHER ==
[~2017-03-10] VITALS: Ht 182.8 cm; Wt 81.0 kg
--- NOTE | ~2017-03-10 | CON ---
[place], [place] REPORT OF CONSULTATION NAME: PRESTON FREEMAN UNIT #: [id number] ROOM: 510 DOCTOR: EDGAR BRYANROE BIRTHDATE: [birth year] DOS: 03/10/2017 HISTORY OF PRESENT ILLNESS: I was called to consult the patient. The patient was brought down from the floor to the Emergency Room. I did not know that the patient was bedfast and nonambulatory. I could have seen the patient on the floor and what had made much easier for the patient and the nursing staff. The patient was very cooperative. External examination of his eyes and was found essentially normal. He had no ocular pain. Visual acuities could not be obtained. I could not do a slit lamp examination, but I instilled fluorescein drops in both eyes and used an ultraviolet penlight to ascertain the patient's ocular status. There was no staining. He had 1+ hyperemia and 1+ mucus strands. DIAGNOSIS: Probable viral conjunctivitis. TREATMENT: TobraDex eyedrops 1 drop in both eyes every 2 hours x 5 days and hot compresses every 6 hours x 10 minutes was prescribed. His nurse was to call in 4 days if there was no improvement on this patient. ROE HERNÁNDEZ OD CM:CONSTR:REPORT OF CONSULTATION 1140 03/12/17 1336 interface
[~2017-03-10 08:41] MED LIST changes: +FISH OIL 500MG PO; +LIPITOR80 MG PO; +MEGACE 40400 MG/10 PO; +NITROSTAT0.4 MG SL; +SEPTDS PO
[2017-03-10 09:01] VITALS: BP 156/84
[2017-03-10 09:14] LABS: BASO # 0.1 10*3/uL (0.0-0.1); BASO % 0.9 % (0.0-1.0); EOS # 0.3 10*3/uL (0.0-0.4); EOS % 4.1 % (1.0-4.0); HEMATOCRIT 35.2 % (42.0-52.0); HEMOGLOBIN 11.8 g/dl (14.0-18.0); LYMPH # 2.3 10*3/uL (1.3-4.4); LYMPH % 28.3 % (27.0-41.0); MEAN CELL VOLUME 97.5 fl (80.0-94.0); MEAN CORPUSCULAR HGB 32.7 pg (27.0-31.0); MEAN CORPUSCULAR HGB CONC 33.5 g/dl (33.0-37.0); MEAN PLATELET VOLUME 10.6 fl (9.6-12.3); MONO # 0.7 10*3/uL (0.1-1.0); NEUT # 4.6 10*3/uL (2.3-7.9); NEUT % 57.2 % (47.0-73.0); PLATELET COUNT AUTOMATED 251 10*3/uL (130-400); RED BLOOD COUNT 3.61 10*6/uL (4.50-5.90); RED CELL DISTRI WIDTH 15.8 % (0-14.5)
[2017-03-10 09:21] LABS: INTERNATIONAL NORM RATIO 1.2 (2.0-3.5)
[2017-03-10 09:30] LABS: ALBUMIN 3.3 gm/dl (3.1-4.5); CREATININE 1.49 mg/dL (0.70-1.30); POTASSIUM 3.8 mmol/L (3.5-5.1)
[2017-03-10 09:31] LABS: TROPONIN I 0.028 ng/ml (<0.045)
[2017-03-10 10:00] LABS: BILIRUBIN NEGATIVE (NEGATIVE); CLARITY CLOUDY (CLEAR); COLOR YELLOW (YELLOW); GLUCOSE NEGATIVE (NEGATIVE); KETONE NEGATIVE (NEGATIVE)
[2017-03-10 10:01] LABS: BLOOD 3+ (NEGATIVE); LEUKO ESTERASE 3+ (NEGATIVE); NITRITE POSITIVE (NEGATIVE); PH 6.5 (5.0-9.0); SPECIFIC GRAVITY 1.015 (1.005-1.030); UROBILINOGEN 0.2 E.U./dl (0.2-1.0)
[2017-03-10 10:12] LABS: WBC TNTC wbc/hpf (0-5)
--- NOTE | 2017-03-10 11:14 | NUR ---
PATIENT TAKEN TO 5TH FLOOR AT THIS TIME BY MEKHI JUAN.
[2017-03-10 11:15] VITALS: BP 127/70
[2017-03-10] MEDS ORDERED: PRINIVIL10 MG PO (11:58)
[2017-03-10] MEDS ORDERED: FLOMAX0.4 MG PO (11:59)
[2017-03-10 12:00] VITALS: BP 127/70
[2017-03-10] MEDS ORDERED: METFORMIN500 MG PO (12:00)
--- NOTE | 2017-03-10 12:32 | NUR ---
PATIENT FAMILY ARRIVES BACK TO THE ER ASKING ABOUT PATIENT IV NORMAL SALINE. PATIENT NORMAL SALINE WAS STARTED IN ER AT 80ML/HR. PATIENT ALSO HAS ROCEPHIN RUNNING WHILE BEING TRANSPORTED TO THE FLOOR. FAMILY STATES TO THIS NURSE THAT THEY WERE TOLD THAT THERE WERE NO ORDERS FOR IV FLUIDS OR EYE DROPS. EXPLAINED TO PATIENTS FAMILY THAT ER ORDERS BASICLY ARE ORDERED WHEN THE PATIENT IS IN THE ER. ONCE PATIENT IS ADMITTED THE ORDERS WILL COME FROM THE ADMITTING DOCTOR. PATIENTS FAMILY UNDERSTANDS AND THANKED FOR THE EXPLANATION.
--- NOTE | 2017-03-10 13:58 | NUR ---
PHYSICAL THERAPY Nursing screen received. Patient from home. Will request order for PT. Mayi Barahona ,PT
--- NOTE | 2017-03-10 13:59 | NUR ---
Nursing screen received on the patient. Chart review reveals that Occupational Therapy referral is appropriate. Requesting OT orders as patient is living at home with family support. Scarlett Velasquez OTR/buzz
--- NOTE | 2017-03-10 15:45 | NUR ---
PER PTS FAMILY THEY WOULD LIKE DR. HERNÁNDEZ CONSULTED REGARDING PATIENTS EYE REDNESS AND ITCHING. DR. RUSS TO THE FLOOR TO SEE PATIENT.
[2017-03-10 16:00] VITALS: BP 128/74
--- NOTE | 2017-03-10 16:01 | NUR ---
MESSAGE LEFT ON OFFICE PHONE AND CELL PHONE FOR DR. HERNÁNDEZ REGARDING CONSULT.
--- NOTE | 2017-03-10 16:10 | NUR ---
PATIENTS FAMILY QUESTIONING WHY IVF WERE NOT CONTINUED ON THE FLOOR. PREVIOUSLY DISCUSSED WITH DR. GONCALVES ON ADMISSION BUT INFORMED DR. RUSS THAT PATIENTS FAMILY WISHES TO SPEAK WITH HIM REGARDING PTS "DEHYDRATION."
--- NOTE | 2017-03-10 17:18 | NUR ---
CALLED DR. HERNÁNDEZ REGARDING CIPRO DROPS PREVIOUSLY ORDERED. NEED TO KNOW WHETHER HE WANTS THESE CONTINUED OR NOT. MESSAGE LEFT ON CELL PHONE VOICEMAIL.
--- NOTE | 2017-03-10 17:18 | NUR ---
DR. HERNÁNDEZ CALLED THE FLOOR FOLLOWING EXAM AND GAVE ORDERS.
--- NOTE | 2017-03-10 18:44 | NUR ---
PHONED DR. URSS ABOUT DRESSING ORDERS FOR STAGE 2 ON RIGHT BUTTOCKS. HE IS TO CALL BACK WITH ORDERS.
--- NOTE | 2017-03-10 19:50 | NUR ---
PT. SLEEPING, AWAKENED TO VERBAL STIMULATION, ORIENTED TO PERSON ONLY. RE-ORIENTED TO PLACE AND TIME. PT. CURRENTLY ON RA, LUNGS DIMINISHED T/O, DENIES SOB. PT. HRR, PPP, NO EDEMA, DENIES CP. CALL LIGHT WITHIN REACH, BED IN LOWEST POSITION, WHEELS LOCKED.
[2017-03-10 20:00] VITALS: BP 134/64
[2017-03-11] VITALS: BP 113/88
--- NOTE | 2017-03-11 02:04 | NUR ---
PT. REFUSED EYE DROPS AT THIS TIME. STATED HE WILL "TAKE THEM IN MORNING." WILL CONTINUE EYE DROPS WITH NEXT SCHEDULED DOSE.
[2017-03-11 06:46] LABS: BASO # 0.1 10*3/uL (0.0-0.1); BASO % 0.8 % (0.0-1.0); EOS # 0.3 10*3/uL (0.0-0.4); EOS % 3.7 % (1.0-4.0); HEMATOCRIT 30.8 % (42.0-52.0); HEMOGLOBIN 10.2 g/dl (14.0-18.0); LYMPH # 1.6 10*3/uL (1.3-4.4); LYMPH % 22.7 % (27.0-41.0); MEAN CELL VOLUME 97.2 fl (80.0-94.0); MEAN CORPUSCULAR HGB 32.2 pg (27.0-31.0); MEAN CORPUSCULAR HGB CONC 33.1 g/dl (33.0-37.0); MEAN PLATELET VOLUME 10.6 fl (9.6-12.3); MONO # 0.6 10*3/uL (0.1-1.0); MONO % 8.4 % (3.0-9.0); NEUT # 4.5 10*3/uL (2.3-7.9); NEUT % 63.8 % (47.0-73.0); PLATELET COUNT AUTOMATED 230 10*3/uL (130-400); RED BLOOD COUNT 3.17 10*6/uL (4.50-5.90); RED CELL DISTRI WIDTH 15.7 % (0-14.5); WHITE BLOOD COUNT 7.1 10*3/uL (4.8-10.8)
[2017-03-11 07:05] LABS: BUN 29 mg/dl (7-24); CHLORIDE 112 mmol/L (98-107); PHOSPHOROUS 2.6 mg/dL (2.5-4.9); POTASSIUM 3.5 mmol/L (3.5-5.1); SODIUM 145 mmol/L (136-145)
[2017-03-11 07:11] LABS: THYROID STIM HORMONE (HS) 0.944 uIU/ml (0.358-4.75)
[2017-03-11 08:00] VITALS: BP 118/58
[2017-03-11 08:05] LABS: VITAMIN D, 25-HYDROXY 44.8 ng/mL (30-100)
--- NOTE | 2017-03-11 09:59 | NUR ---
Petroleum Engineering Professor in to talk to patient. Patient states lives at home alone. There are some steps in the home. Physician: Dr. Holden Davis Pharmacy: [facility] Patient's level of ADLs: MODERATE ASSIST Patient has working utilities: yes DME: walker Follow-up physician's appointment after d/c: will be made by hospitalist nurse director upon discharge Does patient want to access PORTAL?: no Discharge plan home [facility]. Patient lives at home alone with 2 daughters in the area. He states he uses a walker for ambulation. Discussed with patient about a short term penitentiary facility and the patient refuses and wants to return home with home health. I spoke to the daughter, La Felix, at [phone] regarding whether they wanted the patient to return home with home health or a SNF. La states he will go home with home health unless she feels he needs to be transferred to another facility. ELPIDIO THOMAS
--- NOTE | 2017-03-11 11:57 | NUR ---
Occupational Therapy evaluation offered to patient this date with daughter present. Daughter reports that patient is cared for at home 12 hrs/day and he transfers via sliding board at home and does not need any OT/PT evaluation at this time. Patient in agreement with this request. D/c OT referral per patient and family request. Thank you for this referral. Scarlett Velasquez OTr/L
--- NOTE | 2017-03-11 11:59 | NUR ---
PHYSICAL THERAPY PAtient and daughter both request no PT at this time. Patient is sliding board transfer at home with assistance only. PAtient is mon ambulatory and non standing with no weight bearing throughout (B)LE. This condition is chronic. Will d/c orders as requested. Thank you for this referral. Mayi Flores,PT
[2017-03-11 12:00] VITALS: BP 134/80
--- NOTE | 2017-03-11 13:52 | NUR ---
Patient's buttocks assessed for pressure injury. Patient's buttocks skin pink, no odor, no drainage or pressure injury noted. Scar tissue noted to right buttocks. PAtient denied pain at time of assessment. Hydraguard to buttocks recommended for protection.
[2017-03-11 16:00] VITALS: BP 90/59
--- NOTE | 2017-03-11 19:50 | NUR ---
PT. AWAKE, ALERT, AND ORIENTED TO PERSON AND PLACE AT THIS TIME. PT. IN BED AT THIS TIME. PT. CURRENTLY DENIES CP, PAIN, OR SOB. HRR, PPP, NO EDEMA. PT. ON RA. BOWEL SOUNDS NORMO X 4 QUADS. CALL LIGHT WITHIN REACH, BED IN LOWEST POSITION, WHEELS LOCKED.
[2017-03-11 20:00] VITALS: BP 107/64
[2017-03-12] VITALS: BP 115/98
--- NOTE | 2017-03-12 00:11 | NUR ---
SPOKE WITH DR. MORRELL AT THIS TIME REGARDING PTS. REFUSAL OF ZOSYN AND EYE DROPS. UPDATED DR. MORRELL ON PTS. CURRENT STATUS. DR. MORRELL WILL BE UP TO SEE THE PT.
--- NOTE | 2017-03-12 02:20 | NUR ---
PT. SLEEPING AT THIS TIME, REQUESTED EARLIER NOT TO BE AWAKENED FOR EYE DROPS. EYE DROPS NOT GIVEN AT THIS TIME, MARKED IN PTS. EMAR.
[2017-03-12 06:36] LABS: BASO # 0.1 10*3/uL (0.0-0.1); BASO % 0.8 % (0.0-1.0); EOS # 0.2 10*3/uL (0.0-0.4); EOS % 3.4 % (1.0-4.0); HEMATOCRIT 27.8 % (42.0-52.0); HEMOGLOBIN 9.2 g/dl (14.0-18.0); LYMPH # 1.5 10*3/uL (1.3-4.4); LYMPH % 23.6 % (27.0-41.0); MEAN CELL VOLUME 97.5 fl (80.0-94.0); MEAN CORPUSCULAR HGB 32.3 pg (27.0-31.0); MEAN CORPUSCULAR HGB CONC 33.1 g/dl (33.0-37.0); MEAN PLATELET VOLUME 10.7 fl (9.6-12.3); MONO # 0.6 10*3/uL (0.1-1.0); MONO % 9.7 % (3.0-9.0); NEUT % 62.2 % (47.0-73.0); PLATELET COUNT AUTOMATED 204 10*3/uL (130-400); RED BLOOD COUNT 2.85 10*6/uL (4.50-5.90); RED CELL DISTRI WIDTH 15.9 % (0-14.5); WHITE BLOOD COUNT 6.4 10*3/uL (4.8-10.8)
[2017-03-12 07:01] LABS: CREATININE 1.44 mg/dL (0.70-1.30); POTASSIUM 3.7 mmol/L (3.5-5.1)
[2017-03-12 08:00] VITALS: BP 116/60
--- NOTE | 2017-03-12 08:00 | NUR ---
LABS RESULTS AND ORDERS REVIEWED. PT HAS NO S AND S OF DISTRESS NOTED AT THIS TIME. CURRENLTY DENIES PAIN. RESPIRATIONS EASY AND UNLABORED. CALL LIGHT IN REACH.
--- NOTE | 2017-03-12 09:30 | NUR ---
Fur Trapper in to see pt. No new needs or request at this time. When medically stable patient will be discharged to home with [facility].
[2017-03-12 12:00] VITALS: BP 99/54
--- NOTE | 2017-03-12 12:29 | NUR ---
RN NOTIFIED DR LOZANO OFFICE OF NEW CONSULT. AWAITING RETRUN CALL.
--- NOTE | 2017-03-12 13:32 | NUR ---
Patient requested to resume home health upon discharge with [facility]. Received order, faxed clincals.
--- NOTE | 2017-03-12 14:00 | NUR ---
RN PERFORMED A SUPRAPUBIC CATH CHANGE. URINE FLOWING WITHOUT DIFFICULTY VIA GRAVITY. PT TOLERATED PROCEDURE WELL.
[2017-03-12 16:00] VITALS: BP 101/55
[2017-03-12 20:00] VITALS: BP 104/60
[2017-03-13] VITALS: BP 108/64
--- NOTE | 2017-03-13 04:59 | NUR ---
PATIENT RESTING IN BED WATCHING TV. UP MOST OF SHIFT WATCHING TV. DENIES COMPLAINTS OF PAIN OR DISCOMFORT. WILL CONTINUE TO MONITOR. CALL LIGHT IN REACH.
[2017-03-13 05:58] LABS: BASO # 0.1 10*3/uL (0.0-0.1); BASO % 0.8 % (0.0-1.0); EOS # 0.3 10*3/uL (0.0-0.4); EOS % 4.1 % (1.0-4.0); HEMATOCRIT 29.4 % (42.0-52.0); HEMOGLOBIN 9.7 g/dl (14.0-18.0); LYMPH # 1.8 10*3/uL (1.3-4.4); LYMPH % 24.3 % (27.0-41.0); MEAN CORPUSCULAR HGB 32.7 pg (27.0-31.0); MEAN PLATELET VOLUME 10.4 fl (9.6-12.3); MONO # 0.7 10*3/uL (0.1-1.0); MONO % 9.2 % (3.0-9.0); NEUT # 4.6 10*3/uL (2.3-7.9); NEUT % 61.2 % (47.0-73.0); PLATELET COUNT AUTOMATED 238 10*3/uL (130-400); RED BLOOD COUNT 2.97 10*6/uL (4.50-5.90); RED CELL DISTRI WIDTH 16.1 % (0-14.5); WHITE BLOOD COUNT 7.5 10*3/uL (4.8-10.8)
[2017-03-13 06:20] LABS: CREATININE 1.45 mg/dL (0.70-1.30)
--- NOTE | 2017-03-13 06:35 | NUR ---
IV INFILTRATED. TRIED X3 UNSUCCESSFUL ATTEMPTS TO START ANOTHER ONE. WILL HAVE DAYLIGHT ATTEMPT IT. OLD IV REMOVED.
[2017-03-13 08:00] VITALS: BP 132/62
--- NOTE | 2017-03-13 08:00 | NUR ---
PATIENT RESTING IN BED. EYE DROPS GIVEN ORDERED. PATIENT VOICES NO COMPLAINTS AT THIS TIME. BED IS IN LOW POSITION. CALL LIGHT IS WITHIN REACH.
[2017-03-13 12:00] VITALS: BP 153/87
[2017-03-13 16:01] VITALS: BP 110/58
[2017-03-13 20:00] VITALS: BP 126/54
[2017-03-14] VITALS: BP 135/48
[2017-03-14 06:39] LABS: BASO % 0.6 % (0.0-1.0); EOS # 0.3 10*3/uL (0.0-0.4); EOS % 4.4 % (1.0-4.0); HEMATOCRIT 27.5 % (42.0-52.0); HEMOGLOBIN 9.1 g/dl (14.0-18.0); LYMPH # 1.9 10*3/uL (1.3-4.4); LYMPH % 29.8 % (27.0-41.0); MEAN CELL VOLUME 98.2 fl (80.0-94.0); MEAN CORPUSCULAR HGB 32.5 pg (27.0-31.0); MEAN CORPUSCULAR HGB CONC 33.1 g/dl (33.0-37.0); MONO # 0.6 10*3/uL (0.1-1.0); NEUT # 3.5 10*3/uL (2.3-7.9); NEUT % 55.9 % (47.0-73.0); PLATELET COUNT AUTOMATED 230 10*3/uL (130-400); WHITE BLOOD COUNT 6.3 10*3/uL (4.8-10.8)
[2017-03-14 07:09] LABS: CREATININE 1.44 mg/dL (0.70-1.30)
[2017-03-14 08:00] VITALS: BP 104/66
--- NOTE | 2017-03-14 08:00 | NUR ---
PATIENT SLEEPING IN BED. VOICES NO COMPLAINTS WHEN AWAKEN. BED IS IN LOW POSITION. CALL LIGHT IS WITHIN REACH.
--- NOTE | 2017-03-14 09:34 | NUR ---
PATIENT REFUSED TO TAKE AM PO MEDICATIONS. HE WAS VERY ADAMENT ABOUT IT. PATIENT ALSO REFUSES TO EAT BREAKFAST AND JUST WANTS TO BE LEFT ALONE. BOTH THE NURSE AND THE PA TRIED TALKING TO HIM BUT HE CONTINUED TO REFUSE.
[2017-03-14 12:00] VITALS: BP 111/59
[2017-03-14 16:00] VITALS: BP 91/47
[2017-03-14 20:00] VITALS: BP 116/55
[2017-03-15] VITALS: BP 111/78
--- NOTE | 2017-03-15 03:46 | NUR ---
Resting quietly in bed. Alert and oriented at this time. Denies pain. Requested eye drops only be given if awake. Resp easy and regular. Will continue to monitor.
[2017-03-15 08:00] VITALS: BP 148/64
--- NOTE | 2017-03-15 09:30 | NUR ---
Permit Coordinator to see patient. Patient plans to return home with [facility] when medically stable.
[2017-03-15 12:00] VITALS: BP 132/63
--- NOTE | 2017-03-15 13:51 | NUR ---
PHYSICAL THERAPY PAtient evaluated on 5, full evaluation to follow. continue with PT as per plan of care for sliding board transfers for home preperation. Home with 02/11 family assist as prior and home health RN. PAtient is high complexity via chart review, tests and evaaltuion: 17130. Thank you for this referral. Mayi Barahona ,PT
--- NOTE | 2017-03-15 14:52 | NUR ---
Occupational Therapy evaluation completed thi date on 5 with full eval to follow. OT/PT was ordered to determine patient's ability to perform sliding board xfers with +1 person as he was doing at home prior to admission. Precautions include vaughan,fall risk, sliding board xfer +1 mod assist,IV UE, max/dependent dressing, bathing, grooming, doretha complexity level 59591. Recommend No further OT at this time as patient is assisted with self care in the home by CHRISTMAS TREE FARM MANAGER daily and xfers. Daughter phoned OT department and OTR explained that patient is able to perform bed to and from w/c sliding board xfers with +1 moderate assist. OTR explained that hosp bed to and from lift chair with sliding board would not be a level surface to mod +1 xfers. Daughter reported that she would have patient use w/c v.s. lift chair in the home upon d/c. Daughter was also informed that home health PT could help determine if patient could transition from sliding board to w/c to lift chair and if no then train caregivers in use of Opal Lift in the home. Daughter was appreciative of above information. Thank you for this referral. Scarlett Velasquez OTR/L
[2017-03-15 16:00] VITALS: BP 118/54
[2017-03-15 20:00] VITALS: BP 109/50
--- NOTE | 2017-03-15 21:20 | NUR ---
PATIENT ASLEEP IN BED. NO S/S OF DISTRESS NOTED. ON ROOM AIR. WILL CONTINUE TO MONITOR. BED ALARM INTACT. CALL LIGHT IN REACH.
[2017-03-16] VITALS: BP 114/73
--- NOTE | 2017-03-16 05:00 | NUR ---
PATIENT GIVEN BATH AT THIS TIME. NEW DRESSING APPLIED TO WOUND ON COCCYX ON LEFT BUTTOCK. OPTIFOAM APPLIED IN ADDITION TO HYDRAGUARD TO PREVENT FURTHER BREAKDOWN. PATIENT EDUCATED ABOUT TURNING Q2H AND PRN. NODS HEAD IN UNDERSTANDING. WILL CONTINUE TO TURN Q2H. BED LEFT LOCKED IN LOW POSITION, BED ALARM INTACT.
[2017-03-16 08:00] VITALS: BP 138/64
--- NOTE | 2017-03-16 08:51 | NUR ---
PHYSICAL THERAPY Patient refused to perform therapy at this time saying," Physical Therapy can come back later when he is awake." Will check back with patient later this morning. BALBIR VALLES CONCRETE LABORER
--- NOTE | 2017-03-16 09:00 | NUR ---
Solar Energy Technician in to see patient. Patient plans to return home with [facility] when medically stable.
--- NOTE | 2017-03-16 11:05 | NUR ---
PHYSICAL THERAPY Patient refused therapy again at 11:05 am saying he is too tired. Patient was encouraged to participate but continued to refuse. Patient has refused 2 x today. BALBIR VALLES SENIOR LINUX ENGINEER
[2017-03-16 12:00] VITALS: BP 113/61
--- NOTE | 2017-03-16 13:30 | NUR ---
PHYSICAL THERAPY Back this PM to treat Arturo for his therapy annabelle. Pt eating his lunch at this time. Back again for Pt therapy session. Talked pt into his transfer up into wheelchair. Transfer supine/sit slow with MOD A X 1, sitting balance CGA X 1, Followed by transfer into wheelchair with sliding board and MOD A X 2, for Pt's safety, and did well fo rmy first time with his, Pt has a cath in. Before transfer up went over act bilateral quad sets for strengthening and had understanding. Pt with call light, phone and no complaints. BALKE SIERRA FIRE SPRINKLER INSPECTOR.
--- NOTE | 2017-03-16 15:30 | NUR ---
CALLED [employer] FOR DR. BEGUM REQUEST TO LOCATE A SUPRAPUBIC CATHETER SO CATH COULD BE CHANGED PRIOR TO DISCHARGE. PER [facility], [facility] DOES NOT STOCK THE ITEM. PER DR. BEGUM, CATH COULD BE CHANGED OUTPATIENT. WILL LET FAMILY KNOW UPON DISCHARGE.
[2017-03-16 16:00] VITALS: BP 92/55
--- NOTE | 2017-03-16 17:41 | NUR ---
PATIENT WAS UNABLE TO BE DISCHARGED THIS EVENING BECAUSE FAMILY HAD TO MAKE TRANSPORTATION AND PATIENT CARE ARRANGEMENTS FOR HIM. DR. BEGUM AND PATIENT WERE NOTIFIED OF CIRCUMSTANCES.
[2017-03-16 20:00] VITALS: BP 118/67
[2017-03-16 23:57] VITALS: BP 98/52
--- NOTE | 2017-03-17 00:35 | NUR ---
24 HR chart check completed.
[2017-03-17 07:00] LABS: BASO # 0.1 10*3/uL (0.0-0.1); BASO % 0.8 % (0.0-1.0); EOS # 0.3 10*3/uL (0.0-0.4); EOS % 4.6 % (1.0-4.0); HEMOGLOBIN 8.6 g/dl (14.0-18.0); LYMPH # 1.8 10*3/uL (1.3-4.4); LYMPH % 27.7 % (27.0-41.0); MEAN CORPUSCULAR HGB 32.1 pg (27.0-31.0); MEAN CORPUSCULAR HGB CONC 33.1 g/dl (33.0-37.0); MEAN PLATELET VOLUME 10.5 fl (9.6-12.3); MONO # 0.6 10*3/uL (0.1-1.0); NEUT # 3.6 10*3/uL (2.3-7.9); NEUT % 57.4 % (47.0-73.0); PLATELET COUNT AUTOMATED 229 10*3/uL (130-400); RED BLOOD COUNT 2.68 10*6/uL (4.50-5.90); RED CELL DISTRI WIDTH 15.9 % (0-14.5); WHITE BLOOD COUNT 6.3 10*3/uL (4.8-10.8)
[2017-03-17 07:17] LABS: CREATININE 1.43 mg/dL (0.70-1.30)
[2017-03-17 08:00] VITALS: BP 123/60
--- NOTE | 2017-03-17 08:25 | NUR ---
PHYSICAL THERAPY Patient refused therapy this AM, saying that he wants to sleep and for therapy to come back later. Will check back later. BALBIR VALLES ANIMAL CHIROPRACTOR
--- NOTE | 2017-03-17 08:30 | NUR ---
Merry Go Round Attendant in to see patient. When medically stable patient is being discharged home with [facility].
--- NOTE | 2017-03-17 10:33 | NUR ---
PHYSICAL THERAPY Checked in on patient and he was eating breakfast at 10:20 am. Will check back later. BALBIR VALLES [employer] FINANCIALS CONSULTANT
--- NOTE | 2017-03-17 11:19 | NUR ---
Patient being discharged to home, daughter requested [facility]. Transportation scheduled for 2 PM. Daughter and nursing notified.
--- NOTE | 2017-03-17 11:22 | NUR ---
PHYSICAL THERAPY Patient presented to therapy with report of possibly going home today. Patient agrees to therapy treatment. Patient's daughter is present. Patient transfered supine to sitting at EOB with CGA X 1 with verbal cues for proper transfer technique. Patient transfered via sliding board and SBA to bedside W/C. Patient was left in seated position with call light within reach and LEs resting on W/C leg rests. PTC was informed of patient being transfered to bedside W/C. Patient was 1:1 with this NURSE OFFICE for 15 minutes total. BALBIR VALLES NURSE OFFICE
[2017-03-17 12:00] VITALS: BP 133/72
--- NOTE | 2017-03-17 15:30 | NUR ---
Discharge instructions reviewed with patient/family. Patient receptive and verbalizes understanding. Follow-up care arranged. Written instructions given to patient/family.Patient left unit in the care of EMT per family request. KARON NICHOLSON
--- NOTE | 2017-03-18 08:27 | NUR ---
PHYSICAL THERAPY CO-SIGN I approve of the Phyical Therapy notes written above. DANIELLE FONTAINE PT
== END 2017-03-17 15:30 | disposition home health service (06) | DRG 698 ==
LOC: ED 08:41 → EDHOLD 10:34 → 5E 10:34
PROVIDERS: Internal Medicine; Student in an Organized Health Care Education/Training Program; ADMIT Emergency Medicine
DX: T83.511A Infection and inflammatory reaction due to indwelling urethral catheter, initial encounter (principal); G93.41 Metabolic encephalopathy; E87.2 Acidosis; E44.1 Mild protein-calorie malnutrition; E11.22 Type 2 diabetes mellitus with diabetic chronic kidney disease; I50.30 Unspecified diastolic (congestive) heart failure; I13.0 Hypertensive heart and chronic kidney disease with heart failure and stage 1 through stage 4 chronic kidney disease, or unspecified chronic kidney disease; N31.9 Neuromuscular dysfunction of bladder, unspecified; B96.4 Proteus (mirabilis) (morganii) as the cause of diseases classified elsewhere; F03.90 Unspecified dementia, unspecified severity, without behavioral disturbance, psychotic disturbance, mood disturbance, and anxiety; D53.9 Nutritional anemia, unspecified; N18.3 Chronic kidney disease, stage 3 (moderate); R31.9 Hematuria, unspecified; K57.30 Diverticulosis of large intestine without perforation or abscess without bleeding; Z96.653 Presence of artificial knee joint, bilateral; K21.9 Gastro-esophageal reflux disease without esophagitis; B30.9 Viral conjunctivitis, unspecified; Y83.8 Other surgical procedures as the cause of abnormal reaction of the patient, or of later complication, without mention of misadventure at the time of the procedure; N39.0 Urinary tract infection, site not specified; I25.10 Atherosclerotic heart disease of native coronary artery without angina pectoris; Z98.890 Other specified postprocedural states; Z88.9 Allergy status to unspecified drugs, medicaments and biological substances; Z87.820 Personal history of traumatic brain injury; I25.2 Old myocardial infarction; Z90.49 Acquired absence of other specified parts of digestive tract; Z95.0 Presence of cardiac pacemaker; Z98.61 Coronary angioplasty status; Z82.49 Family history of ischemic heart disease and other diseases of the circulatory system; Z82.3 Family history of stroke; Z79.82 Long term (current) use of aspirin; Z79.899 Other long term (current) drug therapy; Y92.89 Other specified places as the place of occurrence of the external cause

== ENCOUNTER 2017-10-15 22:15 | Emergency (ER) | payer MEDICARE, OTHER ==
[~2017-10-15] VITALS: Wt 78.9 kg
[~2017-10-15 22:15] MED LIST changes: +PRINIVIL10 MG PO
[2017-10-15 22:23] VITALS: BP 111/73
[2017-10-15] MEDS ORDERED: CIPRO500 MG PO (23:05)
[2017-10-15 23:45] LABS: BILIRUBIN NEGATIVE (NEGATIVE); BLOOD 3+ (NEGATIVE); CLARITY CLOUDY (CLEAR); COLOR YELLOW (YELLOW); GLUCOSE NEGATIVE (NEGATIVE); KETONE TRACE (NEGATIVE); LEUKO ESTERASE 3+ (NEGATIVE); NITRITE NEGATIVE (NEGATIVE)
[2017-10-16 00:03] LABS: RBC TNTC rbc/hpf (0-2); WBC TNTC wbc/hpf (0-5)
== END 2017-10-15 23:07 | disposition home or self-care (01) ==
LOC: ED 22:15
PROVIDERS: Nurse Practitioner Family
DX: T83.511A Infection and inflammatory reaction due to indwelling urethral catheter, initial encounter (principal); N39.0 Urinary tract infection, site not specified; Z96.653 Presence of artificial knee joint, bilateral; Z90.49 Acquired absence of other specified parts of digestive tract; Z95.0 Presence of cardiac pacemaker; Z95.5 Presence of coronary angioplasty implant and graft; Z79.82 Long term (current) use of aspirin; Z79.899 Other long term (current) drug therapy; Z88.8 Allergy status to other drugs, medicaments and biological substances; Y92.9 Unspecified place or not applicable

== ENCOUNTER 2017-11-02 10:13 | Inpatient (IN) | payer MEDICARE, OTHER ==
[~2017-11-02] VITALS: Ht 182.8 cm; Wt 85.3 kg
--- NOTE | ~2017-11-02 | EKG ---
[place], [place] ELECTROCARDIOGRAM REPORT NAME: PRESTON FREEMAN UNIT #: [id number] ROOM: 508 DOCTOR: ANABEL DRAFT REPORT BIRTHDATE: [birth year] [facility] Test Date: 2017-11-02 Test Time: 10:51:10 Pat Name: PRESTON FREEMAN Department: Room: Gender: [place]: PENNY : 1930 Requested By: RACHID MORRELL Order Number: [id number] Reading MD: Michael Redding MD Measurements Intervals [place] Rate: 68 P: 0 [place]: 353 QRS: -34 QRSD: 99 T: -23 QT: 389 QTc: 414 Interpretive Statements Sinus rhythm First degree AV block Left axis deviation Low voltage, precordial leads Borderline T abnormalities, inferior leads Electronically Signed On 11-03-2017 20:39:02 PDT by Michael Redding MD CM:EKGRPT:ELECTROCARDIOGRAM REPORT 1051 38 RACHID CARNES DRAFT REPORT RACHID MORRELL DO
--- NOTE | ~2017-11-02 | PR ---
[place], [place] PROGRESS NOTE NAME: PRESTON FREEMAN UNIT #: [id number] ROOM: 508 DOCTOR: DANIELA WALKER DPM BIRTHDATE: [birth year] DOS: 11/04/2017 ADDENDUM ATTESTATION REPORT The patient was seen with resident, Dr. Tee Yarbrough. I agree with the resident's note. DANIELA WALKER DPM CM:SHAYNE 1446 1611 DANIELA WALKER DPM 11/18/17 1610 interface
--- NOTE | ~2017-11-02 | CON ---
[place], [place] REPORT OF CONSULTATION NAME: PRESTON FREEMAN UNIT #: [id number] ROOM: 508 DOCTOR: DANIELA WALKER DPM BIRTHDATE: [birth year] DOS: 11/04/2017 ADDENDUM The patient was seen with Dr. Yarbrough under my direct supervision. I agree with the above consult and the patient will be seen by Dr. Mesa tomorrow. DANIELA WALKER DPM CM:CONSTR:REPORT OF CONSULTATION 1227 11/04/17 2141 interface
--- NOTE | ~2017-11-02 | PR ---
[place], [place] PROGRESS NOTE NAME: PRESTON FREEMAN UNIT #: [id number] ROOM: 508 DOCTOR: DANIELA WALKER DPM BIRTHDATE: [birth year] DOS: 11/09/2017 ADDENDUM I saw the patient with the resident, Dr. Peter Casey and I agree with his above note. DANIELA WALKER DPM CM:SHAYNE 1234 [id number] DANIELA WALKER DPM 11/10/17 0746 interface
--- NOTE | ~2017-11-02 | PR ---
[place], [place] PROGRESS NOTE NAME: PRESTON FREEMAN UNIT #: [id number] ROOM: 508 DOCTOR: DANIELA WALKER DPM BIRTHDATE: [birth year] DOS: 11/06/2017 SUBJECTIVE: The patient was seen for followup of ulcerations of the dorsal first right MPJ and right heel. OBJECTIVE: The ulcerations to the dorsal medial first right MPJ and lateral right heel are full thickness. No signs of purulent drainage or foul odor. No fluctuance or infection, continuing to improve at this time and stable. ASSESSMENT: Ulcerations, right heel and first right metatarsophalangeal joint. PLAN: Evaluation and management. Continue offloading and local wound care and we will reappoint with the patient while he is in-house to continue to monitor the ulcerations. ADDENDUM I saw the patient with the resident, Dr. Peter Casey and I agree with his above note. DANIELA WALKER DPM CM:PNMUNIR [id number] DANIELA WALKER DPM 11/10/17 0743 interface
[~2017-11-02 10:13] MED LIST changes: +CIPRO500 MG PO
[2017-11-02 10:22] VITALS: BP 122/66
[2017-11-02] MEDS ORDERED: FENOFIBRATE160 MG PO (10:30)
[2017-11-02] MEDS ORDERED: COLACE100 MG PO (10:33)
[2017-11-02] MEDS ORDERED: VOLTAREN100 GM T (10:34)
[2017-11-02 10:49] LABS: BASO # 0.1 10*3/uL (0.0-0.1); BASO % 0.9 % (0.0-1.0); EOS # 0.3 10*3/uL (0.0-0.4); EOS % 3.8 % (1.0-4.0); LYMPH # 1.7 10*3/uL (1.3-4.4); LYMPH % 26.7 % (27.0-41.0); MEAN CELL VOLUME 100.6 fl (80.0-94.0); MEAN CORPUSCULAR HGB 32.5 pg (27.0-31.0); MEAN CORPUSCULAR HGB CONC 32.3 g/dl (33.0-37.0); MEAN PLATELET VOLUME 10.2 fl (9.6-12.3); MONO # 0.5 10*3/uL (0.1-1.0); MONO % 7.1 % (3.0-9.0); NEUT % 61.2 % (47.0-73.0); PLATELET COUNT AUTOMATED 253 10*3/uL (130-400); RED BLOOD COUNT 3.08 10*6/uL (4.50-5.90); RED CELL DISTRI WIDTH 16.7 % (0-14.5); WHITE BLOOD COUNT 6.5 10*3/uL (4.8-10.8)
[2017-11-02 11:00] LABS: ACT PARTIAL THROMBO TIME 27.2 SECONDS (20.8-31.5); INTERNATIONAL NORM RATIO 1.1 (2.0-3.5)
[2017-11-02 11:04] LABS: ALBUMIN 3.1 gm/dl (3.1-4.5); ALKALINE PHOSPHATASE 51 U/L (45-117); BUN 28 mg/dl (7-24); CHLORIDE 106 mmol/L (98-107); CREATININE 1.24 mg/dL (0.70-1.30); LIPASE 77 U/L (73-393); POTASSIUM 4.4 mmol/L (3.5-5.1); SGOT/AST 26 IU/L (3-35); SGPT/ALT 15 U/L (12-78); SODIUM 140 mmol/L (136-145); TOTAL PROTEIN 6.3 gm/dL (6.4-8.2)
[2017-11-02 11:05] LABS: TROPONIN I < 0.015 ng/ml (<0.045)
[2017-11-02 11:07] VITALS: BP 115/61
[2017-11-02 12:36] VITALS: BP 95/54
[2017-11-02 16:00] VITALS: BP 125/81
[2017-11-02 20:00] VITALS: BP 132/60
[2017-11-03] VITALS: BP 113/85
[2017-11-03 06:28] LABS: BASO # 0.1 10*3/uL (0.0-0.1); BASO % 0.7 % (0.0-1.0); EOS # 0.3 10*3/uL (0.0-0.4); EOS % 4.2 % (1.0-4.0); HEMATOCRIT 29.6 % (42.0-52.0); HEMOGLOBIN 9.6 g/dl (14.0-18.0); LYMPH # 1.4 10*3/uL (1.3-4.4); LYMPH % 20.2 % (27.0-41.0); MEAN CELL VOLUME 101.4 fl (80.0-94.0); MEAN CORPUSCULAR HGB 32.9 pg (27.0-31.0); MEAN CORPUSCULAR HGB CONC 32.4 g/dl (33.0-37.0); MEAN PLATELET VOLUME 10.5 fl (9.6-12.3); MONO # 0.6 10*3/uL (0.1-1.0); MONO % 8.7 % (3.0-9.0); NEUT # 4.6 10*3/uL (2.3-7.9); NEUT % 65.9 % (47.0-73.0); PLATELET COUNT AUTOMATED 225 10*3/uL (130-400); RED BLOOD COUNT 2.92 10*6/uL (4.50-5.90); RED CELL DISTRI WIDTH 16.4 % (0-14.5)
[2017-11-03 06:36] LABS: ACT PARTIAL THROMBO TIME 27.8 SECONDS (20.8-31.5); INTERNATIONAL NORM RATIO 1.1 (2.0-3.5)
[2017-11-03 07:06] LABS: ALBUMIN 2.9 gm/dl (3.1-4.5); ALKALINE PHOSPHATASE 42 U/L (45-117); BUN 26 mg/dl (7-24); CHLORIDE 108 mmol/L (98-107); CREATININE 1.03 mg/dL (0.70-1.30); POTASSIUM 3.9 mmol/L (3.5-5.1); SGOT/AST 23 IU/L (3-35); SGPT/ALT 14 U/L (12-78); SODIUM 140 mmol/L (136-145)
[2017-11-03 07:45] LABS: VITAMIN D, 25-HYDROXY 44.8 ng/mL (30-100)
[2017-11-03 08:00] VITALS: BP 143/68
[2017-11-03 12:00] VITALS: BP 138/70
[2017-11-03 16:00] VITALS: BP 117/63
[2017-11-03 20:00] VITALS: BP 114/86
[2017-11-04 07:37] LABS: BASO # 0.1 10*3/uL (0.0-0.1); BASO % 0.8 % (0.0-1.0); EOS # 0.2 10*3/uL (0.0-0.4); EOS % 2.6 % (1.0-4.0); HEMATOCRIT 28.1 % (42.0-52.0); HEMOGLOBIN 8.9 g/dl (14.0-18.0); LYMPH # 1.5 10*3/uL (1.3-4.4); LYMPH % 23.5 % (27.0-41.0); MEAN CELL VOLUME 101.4 fl (80.0-94.0); MEAN CORPUSCULAR HGB 32.1 pg (27.0-31.0); MEAN CORPUSCULAR HGB CONC 31.7 g/dl (33.0-37.0); MEAN PLATELET VOLUME 10.8 fl (9.6-12.3); MONO # 0.6 10*3/uL (0.1-1.0); MONO % 9.3 % (3.0-9.0); NEUT # 4.1 10*3/uL (2.3-7.9); NEUT % 63.5 % (47.0-73.0); PLATELET COUNT AUTOMATED 218 10*3/uL (130-400); RED BLOOD COUNT 2.77 10*6/uL (4.50-5.90); RED CELL DISTRI WIDTH 16.1 % (0-14.5); WHITE BLOOD COUNT 6.5 10*3/uL (4.8-10.8)
[2017-11-04 07:59] LABS: ALBUMIN 2.6 gm/dl (3.1-4.5); ALKALINE PHOSPHATASE 35 U/L (45-117); BUN 22 mg/dl (7-24); CHLORIDE 111 mmol/L (98-107); CREATININE 0.93 mg/dL (0.70-1.30); POTASSIUM 3.6 mmol/L (3.5-5.1); SGOT/AST 25 IU/L (3-35); SGPT/ALT 15 U/L (12-78); SODIUM 143 mmol/L (136-145); TOTAL PROTEIN 5.6 gm/dL (6.4-8.2)
[2017-11-04 08:00] VITALS: BP 115/56
[2017-11-04 12:00] VITALS: BP 119/80
[2017-11-04 16:00] VITALS: BP 122/57
[2017-11-04 20:00] VITALS: BP 117/70
[2017-11-05] VITALS: BP 100/66
[2017-11-05 08:00] VITALS: BP 112/59
[2017-11-05 12:00] VITALS: BP 118/58
[2017-11-05 16:00] VITALS: BP 127/65
[2017-11-05 20:00] VITALS: BP 131/84
[2017-11-06] VITALS: BP 138/63
[2017-11-06 07:26] LABS: BASO % 0.7 % (0.0-1.0); EOS # 0.1 10*3/uL (0.0-0.4); EOS % 2.3 % (1.0-4.0); HEMATOCRIT 27.3 % (42.0-52.0); HEMOGLOBIN 8.5 g/dl (14.0-18.0); LYMPH # 1.7 10*3/uL (1.3-4.4); LYMPH % 30.8 % (27.0-41.0); MEAN CELL VOLUME 102.6 fl (80.0-94.0); MEAN CORPUSCULAR HGB CONC 31.1 g/dl (33.0-37.0); MEAN PLATELET VOLUME 10.7 fl (9.6-12.3); MONO # 0.7 10*3/uL (0.1-1.0); MONO % 12.8 % (3.0-9.0); NEUT % 53.2 % (47.0-73.0); PLATELET COUNT AUTOMATED 184 10*3/uL (130-400); RED BLOOD COUNT 2.66 10*6/uL (4.50-5.90); RED CELL DISTRI WIDTH 15.9 % (0-14.5); WHITE BLOOD COUNT 5.6 10*3/uL (4.8-10.8)
[2017-11-06 08:00] VITALS: BP 121/54
[2017-11-06 08:25] LABS: ALBUMIN 2.4 gm/dl (3.1-4.5); ALKALINE PHOSPHATASE 32 U/L (45-117); BUN 16 mg/dl (7-24); CHLORIDE 113 mmol/L (98-107); CREATININE 0.87 mg/dL (0.70-1.30); POTASSIUM 3.2 mmol/L (3.5-5.1); SGOT/AST 22 IU/L (3-35); SGPT/ALT 12 U/L (12-78); SODIUM 145 mmol/L (136-145); TOTAL PROTEIN 5.2 gm/dL (6.4-8.2)
[2017-11-06 12:00] VITALS: BP 146/58
[2017-11-06 16:00] VITALS: BP 130/60
[2017-11-06 20:00] VITALS: BP 133/52
[2017-11-07] VITALS: BP 119/53
[2017-11-07 07:07] LABS: BASO % 0.6 % (0.0-1.0); EOS # 0.2 10*3/uL (0.0-0.4); EOS % 3.3 % (1.0-4.0); HEMATOCRIT 27.5 % (42.0-52.0); HEMOGLOBIN 8.6 g/dl (14.0-18.0); LYMPH # 1.5 10*3/uL (1.3-4.4); LYMPH % 30.6 % (27.0-41.0); MEAN CELL VOLUME 100.4 fl (80.0-94.0); MEAN CORPUSCULAR HGB 31.4 pg (27.0-31.0); MEAN CORPUSCULAR HGB CONC 31.3 g/dl (33.0-37.0); MEAN PLATELET VOLUME 10.4 fl (9.6-12.3); MONO # 0.4 10*3/uL (0.1-1.0); NEUT # 2.7 10*3/uL (2.3-7.9); NEUT % 56.3 % (47.0-73.0); PLATELET COUNT AUTOMATED 205 10*3/uL (130-400); RED BLOOD COUNT 2.74 10*6/uL (4.50-5.90); RED CELL DISTRI WIDTH 15.8 % (0-14.5); WHITE BLOOD COUNT 4.8 10*3/uL (4.8-10.8)
[2017-11-07 07:39] LABS: CHLORIDE 111 mmol/L (98-107); POTASSIUM 3.4 mmol/L (3.5-5.1); SODIUM 140 mmol/L (136-145)
[2017-11-07 07:57] LABS: ALBUMIN 2.4 gm/dl (3.1-4.5); ALKALINE PHOSPHATASE 50 U/L (45-117); BUN 16 mg/dl (7-24); CREATININE 0.78 mg/dL (0.70-1.30); PHOSPHOROUS 2.1 mg/dL (2.5-4.9); SGOT/AST 20 IU/L (3-35); SGPT/ALT 13 U/L (12-78); TOTAL PROTEIN 5.2 gm/dL (6.4-8.2)
[2017-11-07 08:00] VITALS: BP 120/66
[2017-11-07 12:00] VITALS: BP 112/68
[2017-11-07 16:00] VITALS: BP 119/59
[2017-11-07 20:00] VITALS: BP 112/93
[2017-11-08] VITALS: BP 107/53
[2017-11-08 08:00] VITALS: BP 122/87
[2017-11-08 12:00] VITALS: BP 128/68
[2017-11-08 16:00] VITALS: BP 104/78
[2017-11-08 20:00] VITALS: BP 105/54
[2017-11-09] VITALS: BP 95/48
[2017-11-09 05:54] LABS: BASO # 0.1 10*3/uL (0.0-0.1); BASO % 1.1 % (0.0-1.0); EOS # 0.2 10*3/uL (0.0-0.4); EOS % 3.8 % (1.0-4.0); HEMATOCRIT 25.8 % (42.0-52.0); HEMOGLOBIN 8.2 g/dl (14.0-18.0); LYMPH # 1.7 10*3/uL (1.3-4.4); LYMPH % 35.2 % (27.0-41.0); MEAN CORPUSCULAR HGB 31.8 pg (27.0-31.0); MEAN CORPUSCULAR HGB CONC 31.8 g/dl (33.0-37.0); MEAN PLATELET VOLUME 10.7 fl (9.6-12.3); MONO # 0.5 10*3/uL (0.1-1.0); NEUT # 2.3 10*3/uL (2.3-7.9); NEUT % 48.5 % (47.0-73.0); PLATELET COUNT AUTOMATED 192 10*3/uL (130-400); RED BLOOD COUNT 2.58 10*6/uL (4.50-5.90); RED CELL DISTRI WIDTH 15.9 % (0-14.5); WHITE BLOOD COUNT 4.7 10*3/uL (4.8-10.8)
[2017-11-09 06:07] LABS: BUN 18 mg/dl (7-24); CHLORIDE 109 mmol/L (98-107); CREATININE 0.95 mg/dL (0.70-1.30); POTASSIUM 3.3 mmol/L (3.5-5.1); SODIUM 142 mmol/L (136-145)
[2017-11-09 08:00] VITALS: BP 119/49
[2017-11-09 12:00] VITALS: BP 119/64
[2017-11-09 16:00] VITALS: BP 133/74
[2017-11-09 20:00] VITALS: BP 117/58
[2017-11-10] VITALS: BP 104/54
[2017-11-10 06:23] LABS: BASO # 0.1 10*3/uL (0.0-0.1); EOS # 0.2 10*3/uL (0.0-0.4); HEMATOCRIT 26.7 % (42.0-52.0); HEMOGLOBIN 8.6 g/dl (14.0-18.0); LYMPH # 1.9 10*3/uL (1.3-4.4); LYMPH % 31.6 % (27.0-41.0); MEAN CELL VOLUME 99.6 fl (80.0-94.0); MEAN CORPUSCULAR HGB 32.1 pg (27.0-31.0); MEAN CORPUSCULAR HGB CONC 32.2 g/dl (33.0-37.0); MEAN PLATELET VOLUME 10.8 fl (9.6-12.3); MONO # 0.6 10*3/uL (0.1-1.0); MONO % 9.2 % (3.0-9.0); NEUT # 3.3 10*3/uL (2.3-7.9); NEUT % 54.7 % (47.0-73.0); PLATELET COUNT AUTOMATED 215 10*3/uL (130-400); RED BLOOD COUNT 2.68 10*6/uL (4.50-5.90)
[2017-11-10 06:24] LABS: BUN 21 mg/dl (7-24); CHLORIDE 109 mmol/L (98-107); POTASSIUM 3.8 mmol/L (3.5-5.1); SODIUM 142 mmol/L (136-145)
[2017-11-10 06:25] LABS: CREATININE 0.94 mg/dL (0.70-1.30)
[2017-11-10 08:00] VITALS: BP 116/48
[2017-11-10] MEDS ORDERED: LACTULOSE20 GM/30 M PO (11:05)
== END 2017-11-10 12:25 | disposition home health service (06) | DRG 392 ==
LOC: ED 10:13 → 5E 14:35 → EDHOLD 14:35 → 5E 15:19
PROVIDERS: Emergency Medicine; Internal Medicine; Student in an Organized Health Care Education/Training Program
DX: K52.9 Noninfective gastroenteritis and colitis, unspecified (principal); S12.090A Other displaced fracture of first cervical vertebra, initial encounter for closed fracture; E11.22 Type 2 diabetes mellitus with diabetic chronic kidney disease; E11.51 Type 2 diabetes mellitus with diabetic peripheral angiopathy without gangrene; E11.621 Type 2 diabetes mellitus with foot ulcer; E11.65 Type 2 diabetes mellitus with hyperglycemia; D53.9 Nutritional anemia, unspecified; S00.83XA Contusion of other part of head, initial encounter; I50.32 Chronic diastolic (congestive) heart failure; I13.0 Hypertensive heart and chronic kidney disease with heart failure and stage 1 through stage 4 chronic kidney disease, or unspecified chronic kidney disease; S12.120A Other displaced dens fracture, initial encounter for closed fracture; E86.0 Dehydration; K56.41 Fecal impaction; N18.3 Chronic kidney disease, stage 3 (moderate); S09.90XA Unspecified injury of head, initial encounter; S91.301A Unspecified open wound, right foot, initial encounter; K57.30 Diverticulosis of large intestine without perforation or abscess without bleeding; I25.10 Atherosclerotic heart disease of native coronary artery without angina pectoris; F03.90 Unspecified dementia, unspecified severity, without behavioral disturbance, psychotic disturbance, mood disturbance, and anxiety; K21.9 Gastro-esophageal reflux disease without esophagitis; R62.7 Adult failure to thrive; Z96.653 Presence of artificial knee joint, bilateral; L97.519 Non-pressure chronic ulcer of other part of right foot with unspecified severity; L89.619 Pressure ulcer of right heel, unspecified stage; E87.6 Hypokalemia; W18.39XA Other fall on same level, initial encounter; Z66 Do not resuscitate; Z51.5 Encounter for palliative care; Z88.8 Allergy status to other drugs, medicaments and biological substances; Z79.899 Other long term (current) drug therapy; Z86.73 Personal history of transient ischemic attack (TIA), and cerebral infarction without residual deficits; I25.2 Old myocardial infarction; Z87.440 Personal history of urinary (tract) infections; Z95.0 Presence of cardiac pacemaker; Z90.49 Acquired absence of other specified parts of digestive tract; Z95.5 Presence of coronary angioplasty implant and graft; Z98.1 Arthrodesis status; Z82.49 Family history of ischemic heart disease and other diseases of the circulatory system; Z82.3 Family history of stroke; Z83.6 Family history of other diseases of the respiratory system; Y93.89 Activity, other specified; Y92.810 Car as the place of occurrence of the external cause; Y99.8 Other external cause status

== ENCOUNTER 2017-12-24 10:59 | Inpatient (IN) | payer MEDICARE, OTHER ==
[~2017-12-24] VITALS: Ht 182.9 cm; Wt 78.1 kg
[2017-12-24] VITALS: BP 99/55
--- NOTE | ~2017-12-24 | PR ---
[place], [place] PROGRESS NOTE NAME: PRESTON FREEMAN UNIT #: [id number] ROOM: 410 DOCTOR: DAMASO HERNANDEZ,ROMAN BIRTHDATE: [birth year] DOS: 12/27/2017 ADDENDUM I agree with the assessment and plan made by the family practice resident, Dr. Montano. I reviewed the labs and imaging and made the necessary changes in the note. Emperatriz Petit MD CM:PNTRANS 1649 [id number] ROMAN PETIT MD 01/25/18 0759 interface
--- NOTE | ~2017-12-24 | EKG ---
[place], [place] ELECTROCARDIOGRAM REPORT NAME: PRESTON FREEMAN UNIT #: [id number] ROOM: 410 DOCTOR: ANABEL DRAFT REPORT BIRTHDATE: [birth year] [facility] Test Date: 2017-12-24 Test Time: 11:28:47 Pat Name: PRESTON FREEMAN Department: Room: 410 Gender: M Grain Operations Manager: Brian Sol : 1930 Requested By: RACHID MORRELL Order Number: [id number] Reading MD: Kenrick Noble MD Measurements Intervals [place] Rate: 68 P: [place]: QRS: -31 QRSD: 109 T: -80 QT: 356 QTc: 379 Interpretive Statements Junctional rhythm Left axis deviation Abnormal R-wave progression, early transition Borderline repolarization abnormality Compared to ECG 11/02/2017 10:51:10 Junctional rhythm now present Sinus rhythm no longer present First degree AV block no longer present T-wave abnormality no longer present Electronically Signed On 12-27-2017 9:33:12 PDT by Kenrick Noble MD CM:EKGRPT:ELECTROCARDIOGRAM REPORT 1128 [id number] RACHID CARNES DRAFT REPORT RACHID MORRELL DO
--- NOTE | ~2017-12-24 | CON ---
[place], [place] REPORT OF CONSULTATION NAME: PRESTON FREEMAN UNIT #: [id number] ROOM: 410 DOCTOR: AMBER MOHAMUD,JULY BIRTHDATE: [birth year] DOS: 12/25/2017 HISTORY OF PRESENT ILLNESS: The patient is a pleasant 87-year-old male who was admitted from home. He was sent in by his primary care physician. He has a suprapubic catheter in place. It has been there for a few years due to a neurogenic bladder. He had had apparently according to the chart dark and smelly urine for a few days. The patient himself is a poor historian and unable to contribute much. Urine culture was done, which grew ESBL E. coli. He was sent in the hospital for treatment for urinary tract infection. He has been started on Merrem. The patient denies any fevers or chills at home, is feeling fairly well. No back pain. No nausea, vomiting or diarrhea. Again, he does have a suprapubic catheter in place. Was mildly volume contracted at the time of admission as well. Urine culture with greater than 100,000 colonies of gram-negative rods. Blood cultures are sterile thus far. Urinalysis was positive for nitrites, +3 leukocyte esterase and wbc's too numerous to count. PAST MEDICAL HISTORY: Includes CVA, coronary artery disease, chronic kidney disease, closed head injury, dementia, CHF, diverticulosis, diabetes, GERD, hiatal hernia, hypertension, macrocytic anemia, non-STEMI, bilateral knee replacement, cardiac pacemaker, cholecystectomy, coronary artery stenting. SOCIAL HISTORY: Nonsmoker, lifelong nondrinker, no illicit drug use. . Normally lives at home. FAMILY MEDICAL HISTORY: Mother of old age. Father had emphysema and [place]. Brother with [place]. ALLERGIES: Include ATIVAN AND DILAUDID. CURRENT MEDICATIONS: Ranexa, Protonix, Lipitor, Lopressor, Zestril, cephulac, Imdur, TriCor, Plavix, aspirin, Colace, Xanax, Lovenox, Merrem. LABORATORY DATA: WBC 6.3, platelets 222, BUN 19, creatinine 0.71. LFTs within normal limits. REVIEW OF SYSTEMS: As above in history of present illness. The patient gives review of systems, though he is a very poor historian, likely not accurate. He does have a stage 2 decubitus on his right heel, which he states has been improving. Again, no fevers or chills. No nausea, vomiting or diarrhea. No pain currently. He has not been having any back pain. No rash or itch. No cough or shortness of breath. Has chronic suprapubic catheter due to neurogenic bladder status post CVA. No peripheral edema. Further review of systems unremarkable x 10 is nonambulatory at this point. PHYSICAL EXAMINATION: VITAL SIGNS: Temperature 97.5, pulse 72, respirations 16, BP 126/71. GENERAL: An 87-year-old male, in no acute distress. HEENT: Normocephalic, no thrush. LUNGS: Clear to auscultation bilaterally. Respirations even and unlabored. HEART: Regular rhythm, difficult to auscultate. No murmur appreciated. [place], [place] REPORT OF CONSULTATION NAME: PRESTON FREEMAN UNIT #: [id number] ROOM: [facility] DOCTOR: AMBER MOHAMUDJULY BIRTHDATE: [birth year] ABDOMEN: Soft, nondistended, nontender. Positive bowel sounds. Suprapubic catheter draining yamila urine with heavy sediment. No erythema or purulence at insertion site, no CVA tenderness. EXTREMITIES: No edema or gross deformity. Right heel dry scabbing consistent with stage 2 decubitus. No cellulitis. SKIN: Warm, dry, free of rashes. ASSESSMENT: Urinary tract infection, reportedly due to an extended-spectrum beta-lactamases positive organism. Urine culture with greater than 100,000 colonies of gram-negative rods and urinalysis consistent with pyuria. PLAN: We will continue the Merrem. Follow up on the final urine culture. Would anticipate a short course of antibiotics. JOHNNIE CLARK CNP Emperatriz Espinoza MD CM:CONSTR:REPORT OF CONSULTATION 1337 12/26/17 1224 interface
--- NOTE | ~2017-12-24 | WRIGHTHP ---
[place], [place] PATIENT HISTORY AND PHYSICAL EXAM NAME: PRESTON FREEMAN UNIT #: [id number] ROOM: 410 DOCTOR: LIZZY JONES DPM BIRTHDATE: [birth year] DOS: 12/25/2017 ADDENDUM I saw this patient with resident, . I was, therefore, physically present during the evaluation and medical decision making on this patient. LIZZY JONES DPM CM:HISPHYS:PATIENT HISTORY AND PHYSICAL EXAMINATION 1217 1338 LIZZY JONES DPM 12/27/17 1024 [email or web address]
--- NOTE | ~2017-12-24 | PR ---
[place], [place] PROGRESS NOTE NAME: PRESTON FREEMAN UNIT #: [id number] ROOM: 410 DOCTOR: LIZZY JONES DPM BIRTHDATE: [birth year] DOS: 12/25/2017 ADDENDUM I saw this patient with resident, Aurea Reddy. I was, therefore, physically present during the evaluation and medical decision making on this patient. LIZZY JONES DPM CM:SHAYNE 1217 1338 LIZZY JONES DPM 12/27/17 1022 interface
--- NOTE | ~2017-12-24 | CON ---
[place], [place] REPORT OF CONSULTATION NAME: PRESTON FREEMAN UNIT #: [id number] ROOM: 410 [facility]: [birth year] DOS: 12/25/2017 I agree with the assessment and plan made by the nurse practitioner, Faviola Noble and I reviewed imaging and lab, made the necessary changes in the note. Emperatriz Espinoza MD CM:CONSTR:REPORT OF CONSULTATION 1810 12/30/17 0558 interface
[~2017-12-24 10:59] MED LIST changes: +COLACE100 MG PO; +LACTULOSE20 GM/30 M PO; +VOLTAREN100 GM T
[2017-12-24 11:01] VITALS: BP 138/68
[2017-12-24 11:27] LABS: BASO % 0.6 % (0.0-1.0); EOS # 0.1 10*3/uL (0.0-0.4); HEMATOCRIT 30.7 % (42.0-52.0); HEMOGLOBIN 10.3 g/dl (14.0-18.0); LYMPH # 1.3 10*3/uL (1.3-4.4); LYMPH % 24.2 % (27.0-41.0); MEAN CELL VOLUME 95.6 fl (80.0-94.0); MEAN CORPUSCULAR HGB 32.1 pg (27.0-31.0); MEAN CORPUSCULAR HGB CONC 33.6 g/dl (33.0-37.0); MEAN PLATELET VOLUME 10.7 fl (9.6-12.3); MONO # 0.4 10*3/uL (0.1-1.0); NEUT # 3.5 10*3/uL (2.3-7.9); NEUT % 64.8 % (47.0-73.0); PLATELET COUNT AUTOMATED 241 10*3/uL (130-400); RED BLOOD COUNT 3.21 10*6/uL (4.50-5.90); RED CELL DISTRI WIDTH 14.6 % (0-14.5); WHITE BLOOD COUNT 5.4 10*3/uL (4.8-10.8)
[2017-12-24 11:35] LABS: ACT PARTIAL THROMBO TIME 31.2 SECONDS (20.8-31.5); INTERNATIONAL NORM RATIO 1.1 (2.0-3.5)
[2017-12-24 11:44] LABS: ALBUMIN 2.8 gm/dl (3.1-4.5); ALKALINE PHOSPHATASE 58 U/L (45-117); BUN 25 mg/dl (7-24); CHLORIDE 101 mmol/L (98-107); CREATININE 0.97 mg/dL (0.70-1.30); LIPASE 87 U/L (73-393); SGOT/AST 23 IU/L (3-35); SGPT/ALT 18 U/L (12-78); SODIUM 134 mmol/L (136-145); TOTAL PROTEIN 6.3 gm/dL (6.4-8.2)
[2017-12-24 11:47] LABS: TROPONIN I < 0.015 ng/ml (<0.045)
[2017-12-24 12:13] LABS: BILIRUBIN NEGATIVE (NEGATIVE); BLOOD 3+ (NEGATIVE); CLARITY CLOUDY (CLEAR); COLOR YELLOW (YELLOW); GLUCOSE NEGATIVE (NEGATIVE); KETONE NEGATIVE (NEGATIVE); LEUKO ESTERASE 3+ (NEGATIVE); NITRITE POSITIVE (NEGATIVE); PH 6.5 (5.0-9.0); SPECIFIC GRAVITY 1.015 (1.005-1.030)
[2017-12-24 12:20] LABS: BACTERIA 4+; WBC TNTC wbc/hpf (0-5)
[2017-12-24 13:48] VITALS: BP 136/73
[2017-12-24 13:58] VITALS: BP 136/73
[2017-12-24] MEDS ORDERED: TYLENOL325 M1 PO (14:00)
[2017-12-24] MEDS ORDERED: TOPCARE IBUPRO200 MG PO (14:02)
[2017-12-24 16:00] VITALS: BP 133/75
[2017-12-24 20:00] VITALS: BP 106/47
[2017-12-25] VITALS: BP 128/65
[2017-12-25 06:52] LABS: BASO % 0.6 % (0.0-1.0); EOS # 0.2 10*3/uL (0.0-0.4); EOS % 2.7 % (1.0-4.0); HEMATOCRIT 28.1 % (42.0-52.0); HEMOGLOBIN 9.3 g/dl (14.0-18.0); LYMPH # 1.4 10*3/uL (1.3-4.4); LYMPH % 21.4 % (27.0-41.0); MEAN CELL VOLUME 94.6 fl (80.0-94.0); MEAN CORPUSCULAR HGB 31.3 pg (27.0-31.0); MEAN CORPUSCULAR HGB CONC 33.1 g/dl (33.0-37.0); MEAN PLATELET VOLUME 11.1 fl (9.6-12.3); MONO # 0.6 10*3/uL (0.1-1.0); MONO % 10.2 % (3.0-9.0); NEUT # 4.1 10*3/uL (2.3-7.9); NEUT % 64.6 % (47.0-73.0); PLATELET COUNT AUTOMATED 222 10*3/uL (130-400); RED BLOOD COUNT 2.97 10*6/uL (4.50-5.90); RED CELL DISTRI WIDTH 14.6 % (0-14.5); WHITE BLOOD COUNT 6.3 10*3/uL (4.8-10.8)
[2017-12-25 07:17] LABS: ALBUMIN 2.7 gm/dl (3.1-4.5); BUN 19 mg/dl (7-24); CHLORIDE 106 mmol/L (98-107); FREE T4 1.38 ng/dl (0.76-1.46); POTASSIUM 3.7 mmol/L (3.5-5.1); SGOT/AST 24 IU/L (3-35); SODIUM 138 mmol/L (136-145)
[2017-12-25 07:18] LABS: ACT PARTIAL THROMBO TIME 29.9 SECONDS (20.8-31.5); INTERNATIONAL NORM RATIO 1.1 (2.0-3.5)
[2017-12-25 07:21] LABS: ALKALINE PHOSPHATASE 48 U/L (45-117); CREATININE 0.71 mg/dL (0.70-1.30); SGPT/ALT 18 U/L (12-78); TOTAL PROTEIN 5.7 gm/dL (6.4-8.2)
[2017-12-25 08:00] VITALS: BP 136/62
[2017-12-25 12:00] VITALS: BP 126/71
[2017-12-25 16:00] VITALS: BP 140/74
[2017-12-25 20:00] VITALS: BP 106/58
[2017-12-26] VITALS: BP 142/75
[2017-12-26 05:58] LABS: BASO # 0.1 10*3/uL (0.0-0.1); BASO % 0.9 % (0.0-1.0); EOS # 0.2 10*3/uL (0.0-0.4); EOS % 3.2 % (1.0-4.0); HEMATOCRIT 28.4 % (42.0-52.0); HEMOGLOBIN 9.4 g/dl (14.0-18.0); LYMPH # 1.4 10*3/uL (1.3-4.4); LYMPH % 26.6 % (27.0-41.0); MEAN CELL VOLUME 95.3 fl (80.0-94.0); MEAN CORPUSCULAR HGB 31.5 pg (27.0-31.0); MEAN CORPUSCULAR HGB CONC 33.1 g/dl (33.0-37.0); MEAN PLATELET VOLUME 10.8 fl (9.6-12.3); MONO # 0.6 10*3/uL (0.1-1.0); MONO % 11.9 % (3.0-9.0); NEUT # 3.1 10*3/uL (2.3-7.9); PLATELET COUNT AUTOMATED 214 10*3/uL (130-400); RED BLOOD COUNT 2.98 10*6/uL (4.50-5.90); RED CELL DISTRI WIDTH 14.6 % (0-14.5); WHITE BLOOD COUNT 5.4 10*3/uL (4.8-10.8)
[2017-12-26 06:10] LABS: BUN 14 mg/dl (7-24); CHLORIDE 109 mmol/L (98-107); CREATININE 0.62 mg/dL (0.70-1.30); PHOSPHOROUS 2.9 mg/dL (2.5-4.9); POTASSIUM 3.8 mmol/L (3.5-5.1); SODIUM 138 mmol/L (136-145)
[2017-12-26 08:00] VITALS: BP 138/69
[2017-12-26 12:00] VITALS: BP 123/68
[2017-12-26 16:00] VITALS: BP 116/70
[2017-12-26 20:00] VITALS: BP 111/73
[2017-12-27] VITALS: BP 99/55
[2017-12-27 08:00] VITALS: BP 128/57
[2017-12-27 12:00] VITALS: BP 144/71
[2017-12-27 16:00] VITALS: BP 129/64
[2017-12-27 20:00] VITALS: BP 110/60
[2017-12-28] VITALS: BP 103/56
[2017-12-28 08:00] VITALS: BP 137/77
[2017-12-28 12:00] VITALS: BP 123/32; BP 132/58
[2017-12-28] MEDS ORDERED: MERREM IV1 GM IV (12:53)
[2017-12-28 16:00] VITALS: BP 136/59
[2017-12-28 20:00] VITALS: BP 143/74
[2017-12-29] VITALS: BP 131/75
[2017-12-29 06:08] LABS: BASO % 0.6 % (0.0-1.0); HEMATOCRIT 27.4 % (42.0-52.0); HEMOGLOBIN 9.1 g/dl (14.0-18.0); LYMPH # 1.3 10*3/uL (1.3-4.4); LYMPH % 27.1 % (27.0-41.0); MEAN CELL VOLUME 95.8 fl (80.0-94.0); MEAN CORPUSCULAR HGB 31.8 pg (27.0-31.0); MEAN CORPUSCULAR HGB CONC 33.2 g/dl (33.0-37.0); MEAN PLATELET VOLUME 10.6 fl (9.6-12.3); MONO # 0.4 10*3/uL (0.1-1.0); NEUT % 62.5 % (47.0-73.0); PLATELET COUNT AUTOMATED 130 10*3/uL (130-400); RED BLOOD COUNT 2.86 10*6/uL (4.50-5.90); RED CELL DISTRI WIDTH 14.6 % (0-14.5); WHITE BLOOD COUNT 4.8 10*3/uL (4.8-10.8)
[2017-12-29 08:00] VITALS: BP 146/94
[2017-12-29 12:00] VITALS: BP 131/94
== END 2017-12-29 13:15 | disposition home health service (06) | DRG 689 ==
LOC: ED 10:59 → 4E 12:24 → EDHOLD 12:24 → 4E 12:34
PROVIDERS: Emergency Medicine; Internal Medicine; Student in an Organized Health Care Education/Training Program
DX: N39.0 Urinary tract infection, site not specified (principal); G93.41 Metabolic encephalopathy; E44.1 Mild protein-calorie malnutrition; E87.1 Hypo-osmolality and hyponatremia; L97.419 Non-pressure chronic ulcer of right heel and midfoot with unspecified severity; I50.30 Unspecified diastolic (congestive) heart failure; I13.0 Hypertensive heart and chronic kidney disease with heart failure and stage 1 through stage 4 chronic kidney disease, or unspecified chronic kidney disease; Z16.12 Extended spectrum beta lactamase (ESBL) resistance; N31.9 Neuromuscular dysfunction of bladder, unspecified; E86.0 Dehydration; R79.82 Elevated C-reactive protein (CRP); D72.810 Lymphocytopenia; D64.9 Anemia, unspecified; B96.20 Unspecified Escherichia coli [E. coli] as the cause of diseases classified elsewhere; I25.10 Atherosclerotic heart disease of native coronary artery without angina pectoris; N18.3 Chronic kidney disease, stage 3 (moderate); F03.90 Unspecified dementia, unspecified severity, without behavioral disturbance, psychotic disturbance, mood disturbance, and anxiety; K21.9 Gastro-esophageal reflux disease without esophagitis; E11.22 Type 2 diabetes mellitus with diabetic chronic kidney disease; K57.30 Diverticulosis of large intestine without perforation or abscess without bleeding; Z96.653 Presence of artificial knee joint, bilateral; Z66 Do not resuscitate; Z51.5 Encounter for palliative care; B96.4 Proteus (mirabilis) (morganii) as the cause of diseases classified elsewhere; B95.2 Enterococcus as the cause of diseases classified elsewhere; Z88.8 Allergy status to other drugs, medicaments and biological substances; Z86.73 Personal history of transient ischemic attack (TIA), and cerebral infarction without residual deficits; Z79.899 Other long term (current) drug therapy; Z79.82 Long term (current) use of aspirin; I25.2 Old myocardial infarction; Z90.49 Acquired absence of other specified parts of digestive tract; Z95.0 Presence of cardiac pacemaker; Z95.5 Presence of coronary angioplasty implant and graft; Z98.1 Arthrodesis status; Z82.49 Family history of ischemic heart disease and other diseases of the circulatory system; Z82.3 Family history of stroke; Z83.6 Family history of other diseases of the respiratory system; Z22.322 Carrier or suspected carrier of Methicillin resistant Staphylococcus aureus; Z68.23 Body mass index [BMI] 23.0-23.9, adult

== ENCOUNTER 2018-01-21 10:38 | Inpatient (IN) | payer MEDICARE, OTHER ==
[~2018-01-21] VITALS: Ht 182.8 cm; Wt 80.4 kg
--- NOTE | ~2018-01-21 | EKG ---
[place], [place] ELECTROCARDIOGRAM REPORT NAME: PRESTON FREEMAN UNIT #: [id number] ROOM: DOCTOR: ANABEL DRAFT REPORT BIRTHDATE: [birth year] [facility] Test Date: 2018-01-21 Test Time: 10:56:16 Pat Name: PRESTON FREEMAN Department: Room: Gender: Acting Teacher: : 1930 Requested By: RACHID MORRELL Order Number: [id number] Reading MD: Measurements Intervals [place] Rate: 77 P: [place]: QRS: -32 QRSD: 105 T: -21 QT: 395 QTc: 448 Interpretive Statements Accelerated junctional rhythm Left axis deviation Low voltage, precordial leads Abnormal R-wave progression, late transition Borderline T abnormalities, inferior leads Compared to ECG 12/24/2017 11:28:47 Accelerated junctional rhythm now present Low QRS voltage now present T-wave abnormality now present Junctional rhythm no longer present CM:EKGRPT:ELECTROCARDIOGRAM REPORT 1056 0757 RACHID CARNES DRAFT REPORT RACHID MORRELL DO
--- NOTE | ~2018-01-21 | CON ---
[place], [place] REPORT OF CONSULTATION NAME: PRESTON FREEMAN UNIT #: [id number] ROOM: 526 DOCTOR: AMBER MOHAMUD,JULY BIRTHDATE: [birth year] DOS: HISTORY OF PRESENT ILLNESS: The patient is a pleasant 87-year-old male who was admitted from home with increased weakness, poor appetite. No fevers or chills. He has had no fever since he was admitted here. He had had a positive urine culture. It appears as an outpatient and that was one of the reasons they send him in. He has a suprapubic catheter and was treated for urinary infection in December and he was sent home on Merrem, which he completed. His PICC line was left in for reasons unknown. The patient himself is a very poor historian. Reviewing his old chart, the urine culture at that time grew ESBL Proteus mirabilis and Enterococcus faecalis that was ampicillin sensitive. He should have completed antibiotics on 01/06/2018 with Merrem. He did have his suprapubic catheter changed on 01/13/2018. ID is consulted now he comes in, his admitting blood cultures the one drawn from the line and has gram-positive cocci in pairs and clusters. Urine culture once again has Proteus. Blood cultures were repeated yesterday and are pending. He has had no leukocytosis and no fever. Again, he is a very poor historian and history is assisted per review of the old chart as well as discussion with a friend at bedside who is very well informed of his care. PAST MEDICAL HISTORY: As above as well as coronary artery disease, CVA, hypertension, GERD, hiatal hernia, MRSA colonization and neurogenic bladder status post suprapubic catheter placement, non-STEMI, bilateral knee replacement, cardiac pacemaker, cholecystectomy, coronary artery stent placement. SOCIAL HISTORY: Nonsmoker, nondrinker, lives at home. His daughter takes care of him. FAMILY MEDICAL HISTORY: Not pertinent given the patient's advanced age, though there is history of MS in his family. ALLERGIES: Include ATIVAN and DILAUDID. CURRENT MEDICATIONS: Motrin, Voltaren, Lopressor, lactulose, Imdur, TriCor, Pepcid, Lovenox, Plavix, cefepime, Ranexa, Ditropan, Protonix, Xanax, Milk of Magnesia, Dulcolax, Tylenol. LABORATORY DATA: WBCs 5.2, platelets 222. BUN 28, creatinine 0.81, sodium 134. LFTs within normal limits. Albumin 2.4. Urinalysis positive nitrites, +3 leukocyte esterase, urine wbc's only 5-10 per high powered field. Blood cultures, one admitting blood culture again with gram-positive cocci in pairs and clusters. Urine culture with Proteus mirabilis, which is fairly sensitive. PHYSICAL EXAMINATION: VITAL SIGNS: Temperature 97.7, pulse 71, respirations 20, BP 117/74. GENERAL: An 87-year-old male, in no acute distress, nontoxic and is somewhat confused. HEENT: Normocephalic, no thrush. NECK: No cervical lymphadenopathy. [place], [place] REPORT OF CONSULTATION NAME: PRESTON FREEMAN UNIT #: [id number] ROOM: 526 DOCTOR: AMBER MOHAMUD,JULY BIRTHDATE: [birth year] LUNGS: Clear to auscultation bilaterally. Respirations even and unlabored. HEART: Irregular rhythm. No murmur appreciated. ABDOMEN: Soft, nontender, nondistended. Suprapubic catheter insertion site, no purulent discharge or erythema and draining small amount of clear yamila urine. EXTREMITIES: No lower extremity edema. Right upper extremity, +1 to 2 edema where he has PICC line. PICC dressing dry and intact. No signs of phlebitis. SKIN: Otherwise, warm, dry, free of rashes. ASSESSMENT AND PLAN: Gram-positive cocci bacteremia with concern for a central line-associated bloodstream infection given the fact that this PICC line has been in for at least a month. It should have been removed at the cessation of his IV antibiotic on 01/06/2018. I would doubt urinary tract infection at this point, he is likely colonized. He also somewhat dehydrated and this may be part of his issues with weakness at home. At this point, we will remove the PICC line, culture the tip. Follow up on the repeat blood cultures. Stop cefepime and start vancomycin. The patient has a suprapubic catheter. As long as he has a catheter such as this, he will continue to be colonized with bacteria and therefore true urinary infection needs to be evaluated by other symptoms such as fever and leukocytosis, etc., even sediment in the urine is not indicative of infection but rather colonization, it may reflect merely colonization. JOHNNIE CLARK CNP Emperatriz Espinoza MD CM:CONSTR:REPORT OF CONSULTATION 1624 01/23/18 2119 interface
--- NOTE | ~2018-01-21 | CON ---
[place], [place] REPORT OF CONSULTATION NAME: PRESTON FREEMAN UNIT #: [id number] ROOM: 526 [facility]: [birth year] DOS: 01/23/2018 I agree with the assessment and plan made by the nurse practitioner, Faviola Noble. I reviewed the images and have made the necessary changes in the note. Emperatriz Espinoza MD CM:CONSTR:REPORT OF CONSULTATION 1651 01/25/18 0549 interface
--- NOTE | ~2018-01-21 | EKG ---
[place], [place] ELECTROCARDIOGRAM REPORT NAME: PRESTON FREEMAN UNIT #: [id number] ROOM: 526 DOCTOR: ANABEL DRAFT REPORT BIRTHDATE: [birth year] [facility] Test Date: 2018-01-23 Test Time: 12:50:24 Pat Name: PRESTON FREEMAN Department: Room: 526 1 Gender: M Sulfur Burner: 0012 : 1930 Requested By: LATOYA LLANOS Order Number: [id number] Reading MD: Michael Redding MD Measurements Intervals [place] Rate: 70 P: [place]: QRS: -33 QRSD: 96 T: -47 QT: 408 QTc: 440 Interpretive Statements Atrial fibrillation Multiple ventricular premature complexes Left axis deviation Low voltage, precordial leads Nonspecific repol abnormality, diffuse leads Compared to ECG 01/21/2018 10:56:16 Ventricular premature complex(es) now present Electronically Signed On 01-23-2018 13:55:33 PDT by Michael Redding MD CM:EKGRPT:ELECTROCARDIOGRAM REPORT 1250 1355 LATOYA LLANOS EPIPHANY DRAFT REPORT LATOYA LLANOS
--- NOTE | ~2018-01-21 | CON ---
[place], [place] REPORT OF CONSULTATION NAME: PRESTON FREEMAN UNIT #: [id number] ROOM: 526 DOCTOR: AMBER MOHAMUD,JULY BIRTHDATE: [birth year] DOS: 01/23/2018 ADDENDUM PLAN: The patient has a suprapubic catheter. As long as he has a catheter such as this, he will continue to be colonized with bacteria and therefore true urinary infection needs to be evaluated by other symptoms such as fever and leukocytosis, etc., even sediment in the urine is not indicative of infection but rather colonization, it may reflect merely colonization. JULY ONEIDA CLARK Emperatriz Espinoza MD CM:CONSTR:REPORT OF CONSULTATION 1625 01/23/18 2119 interface
[~2018-01-21 10:38] MED LIST changes: +MERREM IV1 GM IV; +TOPCARE IBUPRO200 MG PO
[2018-01-21 10:46] VITALS: BP 129/78
[2018-01-21 11:17] LABS: BILIRUBIN NEGATIVE (NEGATIVE); BLOOD 3+ (NEGATIVE); CLARITY CLOUDY (CLEAR); COLOR YELLOW (YELLOW); GLUCOSE NEGATIVE (NEGATIVE); KETONE NEGATIVE (NEGATIVE); LEUKO ESTERASE 3+ (NEGATIVE); NITRITE POSITIVE (NEGATIVE); PH >= 9.0 (5.0-9.0); SPECIFIC GRAVITY <= 1.005 (1.005-1.030); UROBILINOGEN 0.2 E.U./dl (0.2-1.0)
[2018-01-21 11:18] LABS: BASO % 0.5 % (0.0-1.0); EOS % 0.7 % (1.0-4.0); HEMATOCRIT 26.5 % (42.0-52.0); HEMOGLOBIN 9.1 g/dl (14.0-18.0); LYMPH # 1.3 10*3/uL (1.3-4.4); LYMPH % 24.2 % (27.0-41.0); MEAN CORPUSCULAR HGB 31.9 pg (27.0-31.0); MEAN CORPUSCULAR HGB CONC 34.3 g/dl (33.0-37.0); MEAN PLATELET VOLUME 10.3 fl (9.6-12.3); MONO # 0.5 10*3/uL (0.1-1.0); MONO % 8.9 % (3.0-9.0); NEUT # 3.6 10*3/uL (2.3-7.9); NEUT % 65.3 % (47.0-73.0); PLATELET COUNT AUTOMATED 242 10*3/uL (130-400); RED BLOOD COUNT 2.85 10*6/uL (4.50-5.90); RED CELL DISTRI WIDTH 15.1 % (0-14.5); WHITE BLOOD COUNT 5.5 10*3/uL (4.8-10.8)
[2018-01-21 11:26] LABS: ACT PARTIAL THROMBO TIME 30.3 SECONDS (20.8-31.5); INTERNATIONAL NORM RATIO 1.1 (2.0-3.5)
[2018-01-21 11:28] LABS: BACTERIA 4+; EPITHELIAL CELLS 0-2
[2018-01-21 11:29] LABS: TRIP PHOS CRYSTALS 4+
[2018-01-21 11:37] LABS: ALBUMIN 2.5 gm/dl (3.1-4.5); BUN 25 mg/dl (7-24); CHLORIDE 102 mmol/L (98-107); CREATININE 0.91 mg/dL (0.70-1.30); LIPASE 57 U/L (73-393); POTASSIUM 4.9 mmol/L (3.5-5.1); SGOT/AST 23 IU/L (3-35); SGPT/ALT 21 U/L (12-78); SODIUM 134 mmol/L (136-145); TOTAL PROTEIN 5.7 gm/dL (6.4-8.2)
[2018-01-21 11:38] LABS: ALKALINE PHOSPHATASE 60 U/L (45-117); TROPONIN I 0.018 ng/ml (<0.045)
[2018-01-21 11:59] VITALS: BP 132/72
[2018-01-21 14:15] VITALS: BP 153/73
[2018-01-21 14:30] VITALS: BP 153/73
[2018-01-21] MEDS ORDERED: PEPCID20 MG PO (14:46)
[2018-01-21] MEDS ORDERED: OXYBUTYNIN5 MG PO (14:47)
[2018-01-21 16:00] VITALS: BP 121/68
[2018-01-21 20:00] VITALS: BP 130/88
[2018-01-22] VITALS: BP 120/48
[2018-01-22 06:40] LABS: BASO % 0.8 % (0.0-1.0); EOS # 0.1 10*3/uL (0.0-0.4); EOS % 2.3 % (1.0-4.0); HEMATOCRIT 24.1 % (42.0-52.0); LYMPH # 1.5 10*3/uL (1.3-4.4); LYMPH % 27.8 % (27.0-41.0); MEAN CELL VOLUME 93.8 fl (80.0-94.0); MEAN CORPUSCULAR HGB 31.1 pg (27.0-31.0); MEAN CORPUSCULAR HGB CONC 33.2 g/dl (33.0-37.0); MEAN PLATELET VOLUME 10.4 fl (9.6-12.3); MONO # 0.6 10*3/uL (0.1-1.0); MONO % 11.9 % (3.0-9.0); NEUT % 56.8 % (47.0-73.0); PLATELET COUNT AUTOMATED 222 10*3/uL (130-400); RED BLOOD COUNT 2.57 10*6/uL (4.50-5.90); RED CELL DISTRI WIDTH 15.1 % (0-14.5); WHITE BLOOD COUNT 5.2 10*3/uL (4.8-10.8)
[2018-01-22 07:28] LABS: CHLORIDE 104 mmol/L (98-107); POTASSIUM 4.1 mmol/L (3.5-5.1); SODIUM 134 mmol/L (136-145)
[2018-01-22 07:35] LABS: ALBUMIN 2.4 gm/dl (3.1-4.5); ALKALINE PHOSPHATASE 53 U/L (45-117); BUN 28 mg/dl (7-24); CREATININE 0.81 mg/dL (0.70-1.30); PHOSPHOROUS 2.6 mg/dL (2.5-4.9); SGOT/AST 20 IU/L (3-35); SGPT/ALT 14 U/L (12-78)
[2018-01-22 08:00] VITALS: BP 130/86
[2018-01-22 12:00] VITALS: BP 122/70
[2018-01-22 16:00] VITALS: BP 132/58
[2018-01-22 20:00] VITALS: BP 130/71
[2018-01-23] VITALS: BP 132/63
[2018-01-23 08:00] VITALS: BP 124/72
[2018-01-23 12:00] VITALS: BP 117/74
[2018-01-23 12:33] VITALS: BP 111/75
[2018-01-23 16:00] VITALS: BP 138/71
[2018-01-23 20:00] VITALS: BP 141/42; BP 143/87
[2018-01-24] VITALS: BP 108/64
[2018-01-24 08:00] VITALS: BP 130/68
[2018-01-24 12:00] VITALS: BP 123/67
[2018-01-24 16:00] VITALS: BP 107/56
[2018-01-24 20:00] VITALS: BP 108/56
[2018-01-25] VITALS (14 sets, daily range): BP systolic 98–158; BP diastolic 49–77
[2018-01-25 07:05] LABS: BASO % 0.6 % (0.0-1.0); EOS # 0.1 10*3/uL (0.0-0.4); HEMATOCRIT 22.5 % (42.0-52.0); HEMOGLOBIN 7.5 g/dl (14.0-18.0); LYMPH % 28.5 % (27.0-41.0); MEAN CELL VOLUME 94.9 fl (80.0-94.0); MEAN CORPUSCULAR HGB 31.6 pg (27.0-31.0); MEAN CORPUSCULAR HGB CONC 33.3 g/dl (33.0-37.0); MEAN PLATELET VOLUME 10.3 fl (9.6-12.3); MONO # 0.7 10*3/uL (0.1-1.0); MONO % 10.3 % (3.0-9.0); PLATELET COUNT AUTOMATED 249 10*3/uL (130-400); RED BLOOD COUNT 2.37 10*6/uL (4.50-5.90); RED CELL DISTRI WIDTH 15.6 % (0-14.5); WHITE BLOOD COUNT 6.9 10*3/uL (4.8-10.8)
[2018-01-25 07:26] LABS: BUN 27 mg/dl (7-24); CREATININE 0.83 mg/dL (0.70-1.30)
[2018-01-26] VITALS: BP 123/79
[2018-01-26 07:19] LABS: BASO % 0.7 % (0.0-1.0); EOS # 0.2 10*3/uL (0.0-0.4); EOS % 2.5 % (1.0-4.0); HEMATOCRIT 25.2 % (42.0-52.0); HEMOGLOBIN 9.1 g/dl (14.0-18.0); LYMPH # 1.7 10*3/uL (1.3-4.4); LYMPH % 28.9 % (27.0-41.0); MEAN CORPUSCULAR HGB 32.3 pg (27.0-31.0); MEAN CORPUSCULAR HGB CONC 36.1 g/dl (33.0-37.0); MEAN PLATELET VOLUME 10.5 fl (9.6-12.3); MONO # 0.7 10*3/uL (0.1-1.0); MONO % 11.6 % (3.0-9.0); NEUT # 3.3 10*3/uL (2.3-7.9); NEUT % 54.8 % (47.0-73.0); PLATELET COUNT AUTOMATED 218 10*3/uL (130-400); RED BLOOD COUNT 2.82 10*6/uL (4.50-5.90); RED CELL DISTRI WIDTH 16.7 % (0-14.5)
[2018-01-26 07:28] LABS: MEAN CELL VOLUME 89.4 fl (80.0-94.0)
[2018-01-26 08:00] VITALS: BP 150/82
[2018-01-26] MEDS ORDERED: HYDROCODONE-AC1 EAC1 PO (11:37)
[2018-01-26 12:00] VITALS: BP 131/67
[2018-01-26 16:00] VITALS: BP 119/72
[2018-01-26 20:00] VITALS: BP 116/95
[2018-01-26 20:15] VITALS: BP 118/60
[2018-01-27] VITALS: BP 132/59
[2018-01-27 08:00] VITALS: BP 126/66
[2018-01-27] MEDS ORDERED: FEROCON CAPSUL1 EACH PO (10:46)
[2018-01-27 12:00] VITALS: BP 114/61
== END 2018-01-27 13:40 | disposition home health service (06) | DRG 640 ==
LOC: ED 10:38 → EDHOLD 12:41 → 5E 12:41
PROVIDERS: Emergency Medicine; Registered Nurse
DX: E87.1 Hypo-osmolality and hyponatremia (principal); G93.41 Metabolic encephalopathy; N39.0 Urinary tract infection, site not specified; E44.0 Moderate protein-calorie malnutrition; E86.0 Dehydration; N18.3 Chronic kidney disease, stage 3 (moderate); K21.9 Gastro-esophageal reflux disease without esophagitis; Z66 Do not resuscitate; Z51.5 Encounter for palliative care; B96.4 Proteus (mirabilis) (morganii) as the cause of diseases classified elsewhere; D53.9 Nutritional anemia, unspecified; N31.9 Neuromuscular dysfunction of bladder, unspecified; I48.91 Unspecified atrial fibrillation; E11.65 Type 2 diabetes mellitus with hyperglycemia; E11.22 Type 2 diabetes mellitus with diabetic chronic kidney disease; Z96.653 Presence of artificial knee joint, bilateral; I25.10 Atherosclerotic heart disease of native coronary artery without angina pectoris; I12.9 Hypertensive chronic kidney disease with stage 1 through stage 4 chronic kidney disease, or unspecified chronic kidney disease; F03.90 Unspecified dementia, unspecified severity, without behavioral disturbance, psychotic disturbance, mood disturbance, and anxiety; Z86.73 Personal history of transient ischemic attack (TIA), and cerebral infarction without residual deficits; I25.2 Old myocardial infarction; Z95.0 Presence of cardiac pacemaker; Z95.5 Presence of coronary angioplasty implant and graft; Z90.49 Acquired absence of other specified parts of digestive tract; S91.301S Unspecified open wound, right foot, sequela; Z88.5 Allergy status to narcotic agent; Z88.8 Allergy status to other drugs, medicaments and biological substances; Z82.49 Family history of ischemic heart disease and other diseases of the circulatory system; Z82.5 Family history of asthma and other chronic lower respiratory diseases; Z79.1 Long term (current) use of non-steroidal anti-inflammatories (NSAID); Z79.82 Long term (current) use of aspirin; Z79.899 Other long term (current) drug therapy; Z68.24 Body mass index [BMI] 24.0-24.9, adult